=== PATIENT | female | born 1945 | race Caucasian/White ===

== ENCOUNTER 2021-04-14 03:41 | Emergency (ER) | payer OTHER ==
--- OUTSIDE RECORDS SUMMARY | 2021-04-14 03:43 | XMS REPORT | Continuity of Care Document ---
:1945 Author Organization [facility] t Address [address] [place] [address] Care Team Providers Name Role Phone Fredy Silvestre MD Attending Clinician Doctor Unassigned, Name Attending Clinician Unavailable Payers Payer Name Policy Type Policy Number Effective Date Expiration Date S ource Problems This patient has no known problems. Allergies, Adverse Reactions, Alerts Allergy Allergy Status Severity Reaction(s) Onset Inactive Treating Comm ents Source Name Type Date Date Clinician [place] DA Active [facility] ins 12-08 00:00: [address] Medications This patient has no known medications. Procedures This patient has no known procedures. Encounters Start End Encounter Admission Attending Care Care Encounter Source Date/Time Date/Time Type Type Clinicians Facility Department ID 2021-03-03 2021-03-03 Telephone GORDON Silvestre [id number] 00:00:00 00:00:00 [facility] [id number] Fredy Reeves [id number] Jessi [id number] nal [address] 2021-02-23 2021-02-23 Office GODRON Silvestre [id number] 09:42:48 10:07:36 Visit [facility] [id number] Fredy Reeves [id number] Jessi [id number] nal [address] 2021-02-23 2021-02-23 Orders Doctor ERIC [id number] 00:00:00 00:00:00 Only Unassigned, [place] [id number] [facility] [id number] Results Test Description Test Time Test Comments Results Result Comments Source BASIC METABOLIC PANEL 2020-12-09 08:09:00 Test Item Value Reference Range Interpretation Comme nts SODIUM (test code = NA) 132 MMOL/L 137-145 L POTASSIUM (test code = K) 4.0 MMOL/L 3.5-5.1 N CHLORIDE (test code = CL) 100 MMOL/L 98-107 N CARBON DIOXIDE (test code = CO2) 27 MMOL/L 22-30 N GLUCOSE (test code = GLU) 133 MG/DL 74-106 H BLOOD UREA NITROGEN (test code = 12 MG/DL 7-17 N BUN) GLOMERULAR FILTRATION RATE (test > 60 Reporting units: ml/min/1.73 code = GFR) m2 (Modified M DRD Formula)Referen ce Range: > or = 60 ml/min/1.7 3 m2 CREATININE (test code = CREAT) 0.70 MG/DL 0.52-1.04 N CALCIUM (test code = CA) 7.8 MG/DL 8.4-10.2 L CBC W/AUTO [id number] 07:46:00 Test Item Value Reference Range Interpretation Comments WHITE BLOOD CELL (test code = 8.4 K/MM3 3.8-9.8 N WBC) RED BLOOD CELL (test code = 3.66 M/MM3 3.58-4.97 N RBC) HEMOGLOBIN (test code = HGB) 10.4 G/DL 11.2-14.9 L HEMATOCRIT (test code = HCT) 33.4 % 33.2-43.5 MEAN CELL VOLUME (test code = 91 fL 80.7-99.1 N MCV) MEAN CELL HGB (test code = MCH) 28.4 pg 27.0-34.1 N MEAN CELL HGB CONCETRATION 31.1 % 32.2-35.7 L (test code = MCHC) RED CELL DISTRIBUTION WIDTH 13.9 % 12.1-15.2 N (test code = RDW) PLATELET COUNT (test code = 191 K/MM3 129-368 N PLT) MEAN PLATELET VOLUME (test code 11.3 fl 7.4-10.4 H = MPV) NEUTROPHIL % (test code = NT%) 75.7 % 43-75 H IMMATURE GRANULOCYTE % (test 0.4 % 0.0-2.0 N code = IG%) LYMPHOCYTE % (test code = LY%) 9.7 % 14-44 L MONOCYTE % (test code = MO%) 10.5 % 4-13 N EOSINOPHIL % (test code = EO%) 3.1 % 0-6 N BASOPHIL % (test code = BA%) 0.6 % 0-2 N NUCLEATED RBC % (test code = 0.0 % 0-1.0 N NRBC%) NEUTROPHIL # (test code = NT#) 6.33 K/mm3 2.0-7.6 N IMMATURE GRANULOCYTE # (test 0.03 x10 3/uL 0-0.03 N code = IG#) LYMPHOCYTE # (test code = LY#) 0.81 K/mm3 1.0-3.8 L MONOCYTE # (test code = MO#) 0.88 K/mm3 0.1-0.8 H EOSINOPHIL # (test code = EO#) 0.26 K/mm3 0.0-0.2 H BASOPHIL # (test code = BA#) 0.05 K/mm3 0.0-0.2 N NUCLEATED RBC # (test code = 0.00 K/mm3 0.0-0.1 N NRBC#) GLUCOSE BEDSIDE [id number] 18:37:00 Test Item Value Reference Range Interpretation Comments GLUCOSE BEDSIDE TESTING (test code 127 MG/DL 60-99 H = GLUBED) [id number] 10:57:00 Test Item Value Reference Range Interpretation Comments ACT-ISTAT (test code = ACTI) 323 SEC 74-137 H [id number] 10:37:00 Test Item Value Reference Range Interpretation Comments ACT-ISTAT (test code = ACTI) 301 SEC 74-137 H [id number] 10:17:00 Test Item Value Reference Range Interpretation Comments ACT-ISTAT (test code = ACTI) 285 SEC 74-137 H [id number] 09:57:00 Test Item Value Reference Range Interpretation Comments ACT-ISTAT (test code = ACTI) 290 SEC 74-137 H BASIC METABOLIC [id number] 06:52:00 Test Item Value Reference Range Interpretation Comments SODIUM (test code = 137 MMOL/L 137-145 N NA) POTASSIUM (test code = 4.8 MMOL/L 3.5-5.1 N K) CHLORIDE (test code = 99 MMOL/L 98-107 N CL) CARBON DIOXIDE (test 31 MMOL/L 22-30 H code = CO2) GLUCOSE (test code = 107 MG/DL 74-106 H GLU) BLOOD UREA NITROGEN 10 MG/DL 7-17 N (test code = BUN) GLOMERULAR FILTRATION > 60 Report ing units: RATE (test code = GFR) ml/mi n/1.73 m2 (Modified MDRD Formula)Referen ce Range: > or = 6 0 ml/min/1.73 m2 CREATININE (test code 0.70 MG/DL 0.52-1.04 N = CREAT) CALCIUM (test code = 8.9 MG/DL 8.4-10.2 N CA) [id number] 06:52:00 Test Item Value Reference Range Interpretation Comments MAGNESIUM (test code = MAG) 2.1 MG/DL 1.6-2.3 N PROTHROMBIN [id number] 06:49:00 Test Item Value Reference Range Interpretation Comments PROTHROMBIN TIME PATIENT 12.7 9.5-12.7 N (test code = PTP) INTERNATIONAL NORMAL RATIO 1.2 0.86-1.14 H T he INR is to be used (test code = INR) only for m onitoring oral anticoagulantth erapy. INDICATION INR VALUE ------- ------- -----1. Prophylaxis, d eep venous thrombos is, including high risk surgery. 2.0 - 3.0 2. Prophylaxis, de ep venous thrombos is, hip surgery, tr eatment for deep venous thrombosis or pulmonary preve ntion of systemic embolism in pat ients with valvula r heart disease, atrial fibrillation, tissue heart va lve, or acute myocardia l infarction. 2.0 - 3.0 3. Mechanical pros thesis heart valves, recurrent syste gwendolyn embolism. 3.0 - 4.5 PTT [id number] 06:49:00 Test Item Value Reference Range Interpretation Comments PTT ACTIVATED (test code = APTT) 33.3 SECONDS 25.1-36.5 N CBC W/AUTO [id number] 06:39:00 Test Item Value Reference Range Interpretation Comments WHITE BLOOD CELL (test code = 7.2 K/MM3 3.8-9.8 N WBC) RED BLOOD CELL (test code = 4.15 M/MM3 3.58-4.97 N RBC) HEMOGLOBIN (test code = HGB) 11.9 G/DL 11.2-14.9 N HEMATOCRIT (test code = HCT) 37.6 % 33.2-43.5 N MEAN CELL VOLUME (test code = 91 fL 80.7-99.1 N MCV) MEAN CELL HGB (test code = MCH) 28.7 pg 27.0-34.1 N MEAN CELL HGB CONCETRATION 31.6 % 32.2-35.7 L (test code = MCHC) RED CELL DISTRIBUTION WIDTH 13.6 % 12.1-15.2 N (test code = RDW) PLATELET COUNT (test code = 213 K/MM3 129-368 N PLT) MEAN PLATELET VOLUME (test code 10.8 fl 7.4-10.4 H = MPV) NEUTROPHIL % (test code = NT%) 67.3 % 43-75 N IMMATURE GRANULOCYTE % (test 0.1 % 0.0-2.0 N code = IG%) LYMPHOCYTE % (test code = LY%) 16.2 % 14-44 N MONOCYTE % (test code = MO%) 7.4 % 4-13 N EOSINOPHIL % (test code = EO%) 8.3 % 0-6 H BASOPHIL % (test code = BA%) 0.7 % 0-2 N NUCLEATED RBC % (test code = 0.0 % 0-1.0 N NRBC%) NEUTROPHIL # (test code = NT#) 4.85 K/mm3 2.0-7.6 N IMMATURE GRANULOCYTE # (test 0.01 x10 3/uL 0-0.03 N code = IG#) LYMPHOCYTE # (test code = LY#) 1.17 K/mm3 1.0-3.8 N MONOCYTE # (test code = MO#) 0.53 K/mm3 0.1-0.8 N EOSINOPHIL # (test code = EO#) 0.60 K/mm3 0.0-0.2 H BASOPHIL # (test code = BA#) 0.05 K/mm3 0.0-0.2 N NUCLEATED RBC # (test code = 0.00 K/mm3 0.0-0.1 N NRBC#) COVID Asymptomatic IH [id number] 14:18:00 Test Item Value Reference Interpretation Comments Range COVID Negative Negative A negative resu lt does not Asymptomatic IH preclude the SARS-COV-2 NTX (test code = viralinfect ion and should not COVNONPUINTX) be used as the sole basis forpatient fadumo gement decisions. Nega tive results must becombined with clinical observations, p atient history, andepidemiologi rita information. Vi ral levels in clinicalsamples below the detection limit of the assay could lead tone gative results. This test was p erformed using the [employer] Smart TM COVID-19 PCRassay. This test was developed and i ts performancechar acteristics were determined by [facility]. Thi s test has notbeen FDA barrera ared or approved. This test is authorized by t heFDA under Emergency Use Authorization(E UA). The EUA willremain in e ffect unless it is terminated o r revoked by FDA . Testing p arameters have not been valida tena for screeningasympt omatic patients. This test was validated accor ding to the FDA's guidanced ocument "Policy for Diagnostics testing in LaboratoriesCer tified to Perform High Co mplexity Testing under C ARNAV". First test? NoEmployed in Healthcare? UnknownSymptomatic as defined by CDC? UnknownHospitalized due to COVID? UnknownIn ICU due to COVID? UnknownResident in a congregate care setting? Unknown? UnknownAge at collection: Y
[2021-04-14 04:15] LABS: Absolute Lymphocytes (CBC) 0.9 K/uL (0.7-4.9); Hematocrit 37.3 % (36.0-45.0); Lymphocytes % 12.8 % (15.3-44.8); MPV 9.7 fL (7.6-11.3); RBC Red Blood Cell Count 4.42 M/uL (3.86-4.86)
[2021-04-14 04:20] LABS: Protime INR 1.41
[2021-04-14] MEDS ORDERED: NA CHLORIDE 0.9% 1,000 ML ONE (04:27)
[2021-04-14] MEDS ORDERED: METOPROLOL TAR 25 MG TAB ONE (04:27)
[2021-04-14] MEDS ORDERED: METOPROLOL TARTRATE 5 MG/5 ML INJ IV ONE (04:28)
[2021-04-14] MEDS ORDERED: DIGOXIN 0.25 MG/ML AMP ONE (04:29)
[2021-04-14 04:38] LABS: Albumin 3.6 g/dL (3.4-5.0); Bilirubin Direct 0.1 mg/dL (0-0.2); Bilirubin Total 0.8 mg/dL (0.2-1.0); Magnesium 2.1 mg/dL (1.8-2.4); Potassium 3.8 mmol/L (3.5-5.1); Protein, Total 6.7 g/dL (6.4-8.2); Thyroid Stimulating Hormone 0.666 uIU/mL (0.360-3.740); Troponin (Emerg Dept Use Only) 0.18 ng/mL (0.0-0.045)
--- NOTE | 2021-04-14 04:38 | ER ---
Nurse's Notes [facility] Name: Dinorah Castanon Age: 76 yrs Sex: Female : 1945 Arrival Date: 04/14/2021 Time: 03:44 Bed 7 Private MD: Diagnosis: Persistent atrial fibrillation-with RVR;Chest pain, unspecified;Hypotension, unspecified Presentation: 04/14 03:48 Chief complaint: EMS states: Reported recent ablation on december 02 reported she had SOB ea that started yesterday, dizziness. Pt was found to be 150s by EMS 20mg of diLTIAZEM, 4 zofran and NS given per EMS. Coronavirus screen: At this time, the client does not indicate any symptoms associated with coronavirus-19. Ebola Screen: No symptoms or risks identified at this time. Initial Sepsis Screen: Does the patient meet any 2 criteria? No. Patient's initial sepsis screen is negative. Does the patient have a suspected source of infection? No. Patient's initial sepsis screen is negative. Risk Assessment: Do you want to hurt yourself or someone else? Patient reports no desire to harm self or others. Onset of symptoms was April 14, 2021. 03:48 Method Of Arrival: EMS: [facility] ea 03:48 Acuity: POLO 3 ea Triage Assessment: 06:41 General: Appears in no apparent distress. Pain: Denies pain. Neuro: No deficits noted. ak2 Cardiovascular: Rhythm is atrial fibrillation with rapid ventricular response. Respiratory: No deficits noted. Historical: - Allergies: 03:54 PENICILLINS; ea - PMHx: 03:54 Atrial fibrillation; ea - Immunization history:: Adult Immunizations up to date. - Social history:: Smoking status: Patient denies any tobacco usage or history of. - Family history:: not pertinent. Screenin:53 Abuse screen: Denies threats or abuse. Nutritional screening: No deficits noted. ea Tuberculosis screening: No symptoms or risk factors identified. Fall Risk None identified. Assessment: 04:19 General: Appears in no apparent distress. Behavior is calm, cooperative, appropriate ea for age. Pain: Denies pain. Neuro: Level of Consciousness is awake, alert, obeys commands, Oriented to person, place, time. Cardiovascular: Patient's skin is warm and dry. Respiratory: Airway is patent Respiratory effort is even, unlabored, Respiratory pattern is regular, symmetrical. Derm: Skin is pink, warm \\T\\ dry. 06:43 Reassessment: Patient and/or family updated on plan of care and expected duration. Pain ak2 level reassessed. 07:00 Reassessment: Patient appears in no apparent distress at this time. Patient and/or tw2 family updated on plan of care and expected duration. Pain level reassessed. 08:00 Reassessment: Patient appears in no apparent distress at this time. Patient and/or tw2 family updated on plan of care and expected duration. Pain level reassessed. 09:00 Reassessment: Patient appears in no apparent distress at this time. Patient and/or tw2 family updated on plan of care and expected duration. Pain level reassessed. 10:03 Reassessment: Patient appears in no apparent distress at this time. Patient and/or tw2 family updated on plan of care and expected duration. Pain level reassessed. 11:00 Reassessment: Patient appears in no apparent distress at this time. Patient and/or tw2 family updated on plan of care and expected duration. Pain level reassessed. 11:39 Reassessment: Patient appears in no apparent distress at this time. Patient and/or tw2 family updated on plan of care and expected duration. Pain level reassessed. Vital Signs: 03:48 BP 115 / 73; Pulse 107; Resp 19; Temp 97.8; Pulse Ox 97% on R/A; Weight 95.71 kg; ea Height 5 ft. 5 in. (165.10 cm); 06:41 BP 95 / 58; Pulse 85; Resp 16; Pulse Ox 100% on R/A; ak2 07:00 BP 81 / 54; Pulse 107; Resp 17; Pulse Ox 95% on R/A; tw2 07:15 BP 94 / 57; Pulse 108; Resp 17; Pulse Ox 95% on R/A; tw2 07:30 BP 94 / 57; Pulse 102; Resp 17; Pulse Ox 95% on R/A; tw2 07:40 BP 98 / 66; Pulse 105; Resp 16; Pulse Ox 97% on R/A; tw2 07:45 BP 101 / 68; Pulse 114; Resp 18; Pulse Ox 97% on R/A; tw2 08:00 BP 103 / 61; Pulse 110; Resp 17; Pulse Ox 97% on R/A; tw2 08:15 BP 95 / 60; Pulse 111; Resp 17; Pulse Ox 96% on R/A; tw2 08:40 BP 114 / 63; Pulse 81; Resp 17; Pulse Ox 97% on R/A; tw2 09:00 BP 122 / 95; Pulse 118; Resp 17; Pulse Ox 97% on R/A; tw2 09:30 BP 107 / 89; Pulse 118; Resp 12; Pulse Ox 96% on R/A; tw2 10:03 BP 94 / 61; Pulse 111; Resp 17; Pulse Ox 96% on R/A; tw2 11:00 BP 109 / 68; Pulse 126; Resp 17; Pulse Ox 97% on R/A; tw2 11:39 BP 109 / 84; Pulse 100; Resp 17; Pulse Ox 97% on R/A; tw2 03:48 Body Mass Index 35.11 (95.71 kg, 165.10 cm) ea ED Course: 03:44 Patient arrived in ED. ea 03:50 Hoang Bermudez MD is Attending Physician. lavell 03:53 Triage completed. ea 03:53 Arm band placed on right wrist. Patient placed in an exam room, on a stretcher, on ea pulse oximetry. 03:53 Patient has correct armband on for positive identification. Bed in low position. Call ea light in reach. Side rails up X2. 03:53 Inserted saline lock: 20 gauge in left antecubital area, using aseptic technique. ea 04:04 Micah Guadarrama is Primary Nurse. ak2 04:11 XRAY Chest (1 view) In Process Unspecified. EDMS 05:12 initiated a transfer with Renee from [facility] Transfer Center. mw2 05:14 [facility] Dominic Cabrera denied due to capacity. mw2 05:[address] Navarrete to inform him that [facility] Dominic Cabrera denied the patient due to mw2 capacity. He stated "I will work on helping the patient get a bed don't worry.". 07:25 [facility] Dominic denied transfer due to being at full capacity, can call back at noon when the mt renewal is up. 07:36 Galina Gramajo, VERONICA is Primary Nurse. tw2 08:11 Dr Woody with [facility] called to speak with MARLENY Piña, and stated they have a bed mt assignment after speaking to the EMERGENCY GENERATOR MECHANIC and the transfer center will call back with administrative approval. 08:54 Chio with [facility] called to notify us they will be working on a bed for us and will call mt back with a bed assignment. 10:48 No provider procedures requiring assistance completed. Patient transferred, IV remains tw2 in place. 11:15 Report given to VERONICA Edwards at [facility] CVU Rm# [id number] [id number] Administered Medications: 04:55 Discontinued: NS 0.9% 1000 ml IV at 125 ml/hr continuous lavell 04:11 Drug: Digoxin 0.5 mg Route: IVP; Site: left hand; ea 07:09 Follow up: Response: No adverse reaction ea 04:11 Drug: Lopressor (metoprolol TARTRATE)) 25 mg Route: PO; ea 06:17 Follow up: Response: No adverse reaction ea 04:11 Drug: NS 0.9% 500 ml Route: IV; Rate: bolus; Site: left hand; ea 06:17 Follow up: Response: No adverse reaction; IV Status: Completed infusion; IV Intake: ea 500ml 06:17 Follow up: Response: No adverse reaction; IV Status: Completed infusion ea 04:11 Drug: NS 0.9% 1000 ml Route: IV; Rate: 125 ml/hr; Site: left hand; ea 04:22 Drug: Lopressor (metoprolol) 5 mg Route: IVP; Site: left hand; ak2 06:00 Follow up: Response: No adverse reaction ea 04:40 Drug: Lopressor (metoprolol) 2.5 mg Route: IVP; Site: left hand; ea 07:09 Follow up: Response: No adverse reaction ea 05:51 Drug: Aspirin 81 mg Route: PO; ak2 06:46 Follow up: Response: No adverse reaction ea 06:01 Drug: NS 0.9% 1000 ml Route: IV; Rate: 125 ml/hr; Site: left hand; ea 07:09 Follow up: Response: No adverse reaction; IV Status: Infusion continued upon admission ea 06:30 Drug: amiodarone 150 mg Volume: 100 ml; Route: IVPB; Infused Over: 10 mins; Site: left ea hand; 07:05 Follow up: Response: No adverse reaction; IV Status: Completed infusion ea 06:44 Drug: amiodarone 900 mg, D5W 500 ml Route: IVPB; Rate: 1 mg/min; Site: left hand; ea 11:37 Follow up: IV Status: Infusion continued upon transfer tw2 Intake: 06:17 IV: 500ml; Total: 500ml. miles Outcome: 04:37 ER care complete, transfer ordered by . lavell 11:37 Transferred by ground EMS Note: NIKOLAY Alfaro CVU Rm#[id number] tw2 11:37 Condition: stable 11:52 Patient left the ED. tw2 Signatures: Dispatcher [employer] EDMS Hoang Bermudez MD MD cha Wise, Tara, RN RN tw2 Hoda Ashley mt, Elena, RN RN Tray Prieto mw2 Micah Guadarrama ct2
--- NOTE | 2021-04-14 04:38 | EDPHYS ---
Physician Documentation [facility] Name: Dinorah Castanon Age: 76 yrs Sex: Female : 1945 Arrival Date: 04/14/2021 Time: 03:44 Bed 7 Private MD: ED Physician Hoang Bermudez HPI: 04/14 04:12 This 76 yrs old Female presents to ER via EMS with complaints of cp, fast hr lavell and low pressure. 04:12 The patient or guardian reports chest pain that is located primarily in the anterior lavell chest wall, bilaterally. Onset: yesterday. The patient presents with a history of irregular heart beat, heart racing. Context: The symptoms occur at rest. Onset: The symptoms/episode began/occurred yesterday. Duration: The patient or guardian reports multiple episodes, with no pattern. Modifying factors: The symptoms are aggravated by. cp, afib and low pressure. The pain does not radiate. Associated signs and symptoms: Pertinent positives: lightheadedness, SOB. Historical: - Allergies: 03:54 PENICILLINS; ea - PMHx: 03:54 Atrial fibrillation; ea - Immunization history:: Adult Immunizations up to date. - Social history:: Smoking status: Patient denies any tobacco usage or history of. - Family history:: not pertinent. ROS: 04:12 Constitutional: Negative for fever, chills, and weight loss, Eyes: Negative for injury, lavell pain, redness, and discharge, ENT: Negative for injury, pain, and discharge, Neck: Negative for injury, pain, and swelling, Respiratory: Negative for shortness of breath, cough, wheezing, and pleuritic chest pain, Abdomen/GI: Negative for abdominal pain, nausea, vomiting, diarrhea, and constipation, Back: Negative for injury and pain, : Negative for injury, bleeding, discharge, and swelling, MS/Extremity: Negative for injury and deformity, Skin: Negative for injury, rash, and discoloration, Neuro: Negative for headache, weakness, numbness, tingling, and seizure, Psych: Negative for depression, anxiety, suicide ideation, homicidal ideation, and hallucinations, Allergy/Immunology: Negative for hives, rash, and allergies, Endocrine: Negative for neck swelling, polydipsia, polyuria, polyphagia, and marked weight changes, Hematologic/Lymphatic: Negative for swollen nodes, abnormal bleeding, and unusual bruising. 04:12 Cardiovascular: Positive for chest pain, of the chest, palpitations. Exam: 04:12 Constitutional: This is a well developed, well nourished patient who is awake, alert, lavell and in no acute distress. Head/Face: Normocephalic, atraumatic. Eyes: Pupils equal round and reactive to light, extra-ocular motions intact. Lids and lashes normal. Conjunctiva and sclera are non-icteric and not injected. Cornea within normal limits. Periorbital areas with no swelling, redness, or edema. ENT: Nares patent. No nasal discharge, no septal abnormalities noted. Tympanic membranes are normal and external auditory canals are clear. Oropharynx with no redness, swelling, or masses, exudates, or evidence of obstruction, uvula midline. Mucous membranes moist. Neck: Trachea midline, no thyromegaly or masses palpated, and no cervical lymphadenopathy. Supple, full range of motion without nuchal rigidity, or vertebral point tenderness. No Meningismus. Chest/axilla: Normal chest wall appearance and motion. Nontender with no deformity. No lesions are appreciated. Respiratory: Lungs have equal breath sounds bilaterally, clear to auscultation and percussion. No rales, rhonchi or wheezes noted. No increased work of breathing, no retractions or nasal flaring. Abdomen/GI: Soft, non-tender, with normal bowel sounds. No distension or tympany. No guarding or rebound. No evidence of tenderness throughout. Back: No spinal tenderness. No costovertebral tenderness. Full range of motion. Female : Normal external genitalia. Skin: Warm, dry with normal turgor. Normal color with no rashes, no lesions, and no evidence of cellulitis. MS/ Extremity: Pulses equal, no cyanosis. Neurovascular intact. Full, normal range of motion. Neuro: Awake and alert, GCS 15, oriented to person, place, time, and situation. Cranial nerves II-XII grossly intact. Motor strength 5/5 in all extremities. Sensory grossly intact. Cerebellar exam normal. Normal gait. Psych: Awake, alert, with orientation to person, place and time. Behavior, mood, and affect are within normal limits. 04:12 Cardiovascular: Rate: tachycardic, Rhythm: irregularly irregular, Pulses: Pulses are 4+ in bilateral radial, brachial, femoral, popliteal, posterior tibial and and dorsalis pedis arteries.. Heart sounds: normal, Edema: is not appreciated, JVD: is noted bilaterally. 04:12 ECG was reviewed by the Attending Physician. Vital Signs: 03:48 BP 115 / 73; Pulse 107; Resp 19; Temp 97.8; Pulse Ox 97% on R/A; Weight 95.71 kg; ea Height 5 ft. 5 in. (165.10 cm); 06:41 BP 95 / 58; Pulse 85; Resp 16; Pulse Ox 100% on R/A; ak2 07:00 BP 81 / 54; Pulse 107; Resp 17; Pulse Ox 95% on R/A; tw2 07:15 BP 94 / 57; Pulse 108; Resp 17; Pulse Ox 95% on R/A; tw2 07:30 BP 94 / 57; Pulse 102; Resp 17; Pulse Ox 95% on R/A; tw2 07:40 BP 98 / 66; Pulse 105; Resp 16; Pulse Ox 97% on R/A; tw2 07:45 BP 101 / 68; Pulse 114; Resp 18; Pulse Ox 97% on R/A; tw2 08:00 BP 103 / 61; Pulse 110; Resp 17; Pulse Ox 97% on R/A; tw2 08:15 BP 95 / 60; Pulse 111; Resp 17; Pulse Ox 96% on R/A; tw2 08:40 BP 114 / 63; Pulse 81; Resp 17; Pulse Ox 97% on R/A; tw2 09:00 BP 122 / 95; Pulse 118; Resp 17; Pulse Ox 97% on R/A; tw2 09:30 BP 107 / 89; Pulse 118; Resp 12; Pulse Ox 96% on R/A; tw2 10:03 BP 94 / 61; Pulse 111; Resp 17; Pulse Ox 96% on R/A; tw2 11:00 BP 109 / 68; Pulse 126; Resp 17; Pulse Ox 97% on R/A; tw2 11:39 BP 109 / 84; Pulse 100; Resp 17; Pulse Ox 97% on R/A; tw2 03:48 Body Mass Index 35.11 (95.71 kg, 165.10 cm) ea MDM: 03:51 Patient medically screened. lavell 04:16 Differential diagnosis: abnormal EKG, anxiety, coronary artery disease chest wall pain, lavell congestive heart failure Cholelithiasis arrythmia, dehydration, gastritis, hiatal hernia, mitral valve prolapse, pancreatitis, pleurisy, stable angina, unstable angina. HEART Score: History: Slightly Suspicious (0), ECG: Non specific repolarization disturbance / LBTB / PM (1), Age: > or = 65 years (2), Risk Factors: > or = 3 Risk factors for atherosclerotic disease (2), Troponin: < or = 1 x Normal Limit (0). The patient's deep vein thrombosis risk score was calculated as follows: Total Score: 0. This patient was found to be at low risk for a deep vein thrombosis by using the Well's assessment criteria. The patient's pulmonary embolism risk score was calculated as follows: Total Score: 0-2 points. This patient was found to be at low risk for a pulmonary embolism by using the Well's assessment criteria. LOREN Risk Score: 1 - patient's age is greater or equal to 65 years, 1 - Three or more CAD risk factors, [Family Hx], [HTN], [Elevated Cholesterol], 1 - Recent [<24hrs] Severe Angina, TOTAL SCORE = 3. Data reviewed: vital signs, nurses notes, lab test result(s), EKG, radiologic studies, CT scan, plain films. Data interpreted: monitor worker: rate is 107 beats/min, rhythm is regular, Pulse oximetry: on room air is 97 %. Test interpretation: by ED physician or midlevel provider: ECG, plain radiologic studies. Counseling: I had a detailed discussion with the patient and/or guardian regarding: the historical points, exam findings, and any diagnostic results supporting the discharge/admit diagnosis, lab results, radiology results, the need to transfer to another facility, for higher level of care, [facility] does not immediately have the required specialist. 08:11 ED course: spoke with DR George, hospitalist \T\Domin[facility] [place], reports he has spoken with cp MAT REPAIRER of hospital and they are continuing to work on admitting patient. 04/14 03:44 Order name: Basic Metabolic Panel ea 04/14 03:44 Order name: CBC with Diff ea 04/14 03:44 Order name: LFT's; Complete Time: 04:54 ea 04/14 03:44 Order name: Magnesium; Complete Time: 04:54 04/14 03:44 Order name: NT PRO-BNP; Complete Time: 04:54 ea 04/14 03:44 Order name: PT-INR; Complete Time: 04:54 ea 04/14 03:44 Order name: Troponin (emerg Dept Use Only); Complete Time: 04:54 ea 04/14 03:45 Order name: Basic Metabolic Panel; Complete Time: 04:54 EDMS 04/14 03:45 Order name: CBC with Automated Diff; Complete Time: 04:54 EDMS 04/14 04:11 Order name: Lipase; Complete Time: 04:54 EDMS 04/14 04:11 Order name: Thyroid Stimulating Hormone; Complete Time: 04:54 EDMS 04/14 04:14 Order name: Digoxin; Complete Time: 05:09 mw2 04/14 03:44 Order name: XRAY Chest (1 view); Complete Time: 08:00 ea 04/14 03:44 Order name: EKG; Complete Time: 03:45 ea 04/14 03:44 Order name: Cardiac monitoring; Complete Time: 03:48 ea 04/14 03:44 Order name: EKG - Nurse/Tech; Complete Time: 03:55 ea 04/14 09:33 Order name: SARS-COV-2 RT PCR EDMS 04/14 03:44 Order name: IV Saline Lock; Complete Time: 03:55 ea 04/14 03:44 Order name: Labs collected and sent; Complete Time: 03:55 ea 04/14 03:44 Order name: O2 Per Protocol; Complete Time: 03:48 ea 04/14 03:44 Order name: O2 Sat Monitoring; Complete Time: 03:48 ea 04/14 06:13 Order name: IV Saline Lock - Large Bore; Complete Time: 10:48 lavell EC:12 Rate is 98 beats/min. Rhythm is irregularly irregular. QRS [place] is Normal. IN interval lavell is normal. QRS interval is normal. QT interval is normal. No Q waves. T waves are Normal. No ST changes noted. Clinical impression: NSR w/ Non-specific ST/T Changes and No evidence of ischemia. Interpreted by me. Reviewed by me. Administered Medications: 04:55 Discontinued: NS 0.9% 1000 ml IV at 125 ml/hr continuous lavell 04:11 Drug: Digoxin 0.5 mg Route: IVP; Site: left hand; ea 07:09 Follow up: Response: No adverse reaction ea 04:11 Drug: Lopressor (metoprolol TARTRATE)) 25 mg Route: PO; ea 06:17 Follow up: Response: No adverse reaction ea 04:11 Drug: NS 0.9% 500 ml Route: IV; Rate: bolus; Site: left hand; ea 06:17 Follow up: Response: No adverse reaction; IV Status: Completed infusion; IV Intake: ea 500ml 06:17 Follow up: Response: No adverse reaction; IV Status: Completed infusion ea 04:11 Drug: NS 0.9% 1000 ml Route: IV; Rate: 125 ml/hr; Site: left hand; ea 04:22 Drug: Lopressor (metoprolol) 5 mg Route: IVP; Site: left hand; ak2 06:00 Follow up: Response: No adverse reaction ea 04:40 Drug: Lopressor (metoprolol) 2.5 mg Route: IVP; Site: left hand; ea 07:09 Follow up: Response: No adverse reaction ea 05:51 Drug: Aspirin 81 mg Route: PO; ak2 06:46 Follow up: Response: No adverse reaction ea 06:01 Drug: NS 0.9% 1000 ml Route: IV; Rate: 125 ml/hr; Site: left hand; ea 07:09 Follow up: Response: No adverse reaction; IV Status: Infusion continued upon admission ea 06:30 Drug: amiodarone 150 mg Volume: 100 ml; Route: IVPB; Infused Over: 10 mins; Site: left ea hand; 07:05 Follow up: Response: No adverse reaction; IV Status: Completed infusion ea 06:44 Drug: amiodarone 900 mg, D5W 500 ml Route: IVPB; Rate: 1 mg/min; Site: left hand; ea 11:37 Follow up: IV Status: Infusion continued upon transfer tw2 Disposition: 13:19 Co-signature as Attending Physician, Hoang Bermudez MD I agree with the assessment and lavell plan of care. Disposition Summary: 04/14/21 04:37 Transfer Ordered Reason: Higher level of care lavell Condition: Stable lavell Problem: new lavell Symptoms: have improved lavell Transfer Location: Other Acute Care Facility(04/14/21 08:11) cp Accepting Physician: DR George(04/14/21 11:52) tw2 Diagnosis - Persistent atrial fibrillation - with RVR lavell - Chest pain, unspecified lavell - Hypotension, unspecified lavell Forms: - Medication Reconciliation Form lavell - SBAR form lavell Signatures: Dispatcher [employer] EDMS Hoang Bermudez MD MD cha Nieto, Roman, MD MD rn Page, Corey, PA PA Galina Elizabeth RN RN tw2 Jenna Carson RN RN Micah Avila ak2 Corrections: (The following items were deleted from the chart) 04:11 03:54 THYROID STIMULAT HORMONE+C.LAB.BRZ ordered. EDMS EDMS 04:11 03:54 LIPASE+C.LAB.BRZ ordered. EDMS EDMS 05:05 04:37 to [facility] lavell 08:11 04:37 [facility] lavell cp 08:11 05:05 to [facility] cp 08:39 05:10 CORONAVIRUS+MR.LAB.BRZ ordered. EDMS EDMS 11:12 08:11 to [facility] cp cp 11:52 11:12 DR George cp tw2
[2021-04-14] MEDS ORDERED: ASPIRIN 81 MG CHEWABLE TABLET ONE (05:31)
[2021-04-14] MEDS ORDERED: D5W 100 ML IV ONE (06:41)
[2021-04-14] MEDS ORDERED: AMIODARONE HCL 150 MG/3 ML INJ IV ONE ×2 (06:41→06:45)
--- NOTE | 2021-04-14 07:58 | RAD REPORT ---
EXAM DESCRIPTION: Frandy Single View04/14/2021 4:11 am CLINICAL HISTORY: Palpitations COMPARISON: 2019 FINDINGS: The lungs appear clear of acute infiltrate. The heart is mildly to moderately enlarged IMPRESSION: No acute abnormalities displayed
[2021-04-14 12:00] VITALS: TEMP 97.8
[2021-04-14 12:19] VITALS: O2SAT 97
[2021-04-14 12:21] VITALS: BP 109/84
--- NOTE | 2021-04-14 19:14 | EKG ---
Test Date: 2021-04-14 Test Time: 03:39:23 Body And Frame Man: MEASUREMENT RESULTS: Intervals: Rate: 98 GA: 208 QRSD: 86 QT: 358 QTc: 457 [place]: P: 69 GA: 208 QRS: -12 T: -67 INTERPRETIVE STATEMENTS: Normal sinus rhythm Low voltage QRS ST & T wave abnormality, consider inferior ischemia ST & T wave abnormality, consider anterolateral ischemia Abnormal ECG No previous ECG available for comparison Electronically Signed On 04-14-21 19:13:32 CDT by Rhys Scott
== END 2021-04-14 11:52 ==
LOC: ER 03:41
DX: I48.19 Other persistent atrial fibrillation (principal); I95.9 Hypotension, unspecified; Z20.822 Contact with and (suspected) exposure to COVID-19; Z88.0 Allergy status to penicillin
CPT/HCPCS: 93005; 85025; 80048; 36415; 83735; 85610; 80162; 80076; 84443; 84484; 83690; 83880; 71045; U0003; J1160; J0282 ×2; J7060; J7030; 96361; 96365; 96366; 96375; 99285

== ENCOUNTER 2022-03-02 04:32 | Emergency (ER) | payer OTHER ==
--- OUTSIDE RECORDS SUMMARY | 2022-03-02 04:35 | XMS REPORT | Continuity of Care Document ---
:1945 Author Organization [facility] t Address [address] [place] [address] Care Team Providers Name Role Phone Chas Velazquez Attending Clinician Unavailable FREDY SILVESTRE Attending Clinician Unavailable Ariel Attending Clinician Unavailable Fredy Silvestre MD Attending Clinician Doctor Unassigned, Name Attending Clinician Unavailable Shanita Villa Attending Clinician Unavailable Parvez STEPHENS Attending Clinician Unavailable Dora INFANTE Attending Clinician Unavailable Dora INFANTE Attending Clinician Unavailable Ariel Admitting Clinician Unavailable Payers Payer Name Policy Type Policy Number Effective Date Expiration Date S ource [employer] MEDICARE ADV [id number] 2017 00:00:00 Problems This patient has no known problems. Allergies, Adverse Reactions, Alerts Allergy Allergy Status Severity Reaction(s) Onset Inactive Treating Comm ents Source Name Type Date Date Clinician [place] DA Active SV 2020- [facility] 04-14 00:00: [address] Penic[place] DA Active SV [facility]CHING AND [facility] RASH 04-14 00:00: [address] Pen[place] DA Active SV ITCHING AND 2020-0 [facility] RASH 12-08 00:00: [address] [place] DA Active SV 2020- [facility] ins 12-08 00:00: [address] PENICILL Drug Active ITCHING 2017-0 Univers INS Class 8-10 ity of 00:00: [address] Medications This patient has no known medications. Procedures This patient has no known procedures. Encounters Start End Encounter Admission Attending Care Care Encounter Source Date/Time Date/Time Type Type Clinicians Facility Department ID 2021-10-28 Outpatient Kimi Velazquez STLMLC STLMLC [id number] Common 14:23:55 [id number] [facility] 2021-10-28 Outpatient Kimi Velazquez STLMLC STLMLC [id number] Common 13:50:36 [id number] [facility] 2021-10-28 Outpatient STLMLC STLMLC [id number] Common 13:47:37 [id number] [facility] 2021-08-01 Emergency [facility] [id number] Univers 13:08:07 [facility] 2022-01-27 2022-01-27 ambulatory STLMLC STLMLC [id number] Common 00:00:00 00:00:00 [facility] 2021-10-11 2021-10-11 ambulatory STLMLC STLMLC [id number] Common 00:00:00 00:00:00 [facility] 2021-08-09 2021-08-09 ambulatory STLMLC STLMLC [id number] Common 00:00:00 00:00:00 [facility] 2021-06-11 2021-06-11 Outpatient STLMLC STLMLC [id number] Common 00:00:00 00:00:00 [facility] 2021-04-27 2021-04-27 Outpatient Chandan SILVESTRE [facility] [id number] Univers 15:15:00 15:15:00 ESHA [id number] [facility] 2021-04-27 2021-04-27 [facility] [id number] Univers 15:15:00 15:15:00 ESHA [facility] 2021-04-14 2021-04-16 Inpatient UR Ariel, NIKOLAYWU TELE [id number] [facility] 15:23:00 15:32:00 Bunny [id number] [facility] 2021-03-23 2021-03-23 [facility] [id number] Univers 10:15:00 10:15:00 ESHA [id number] [facility] 2021-03-23 2021-03-23 Outpatient Chandan [facility] [id number] Univers 10:15:00 10:15:00 [facility] 2021-03-03 2021-03-03 Telephone [facility] [id number] 00:00:00 00:00:00 [facility] [id number] Edward [place] [id number] Professio [phone] nal 044 Office [facility] 2021-02-23 2021-02-23 Office [facility] [id number] 09:42:48 10:07:36 Visit [id number] [facility] [id number] Professio [phone] nal [facility] Office [facility] 2021-02-23 2021-02-23 Outpatient Chandan [facility] [id number] Univers 10:00:00 10:00:00 ESHA [id number] [facility] 2021-02-23 2021-02-23 Outpatient Chandan [facility] [id number] Univers 10:00:00 10:00:00 [facility] 2021-02-23 2021-02-23 Orders Doctor REYES [id number] 00:00:00 00:00:00 Only Unassigned, [place] [id number] [place] [facility] [id number] 2020-12-08 2020-12-08 Outpatient Daisy, HCAWU SURG [id number] [facility] 08:00:00 08:00:00 Neo [id number] [facility] 2020-12-02 2020-12-02 Outpatient R [facility] [id number] Univers 19:30:00 19:30:00 [id number] ity [facility] 2020-12-02 2020-12-02 Outpatient R [facility] [id number] Univers 19:30:00 19:30:00 ity of [facility] 2020-11-28 2020-11-28 Outpatient R [facility] [id number] Univers 10:30:00 10:30:00 [id number] ity [facility] 2020-11-28 2020-11-28 Outpatient R [facility] [id number] Univers 10:30:00 10:30:00 ity [facility] 2020-11-28 2020-11-28 Outpatient R [facility] [id number] Univers 08:00:00 08:00:00 ity [facility] 2020-11-10 2020-11-10 Outpatient R SHEMAR [facility] [id number] Univers 10:00:00 10:00:00 ESHA [id number] ity [facility] 2020-11-10 2020-11-10 [facility] [id number] Univers 10:00:00 10:00:00 ESHA ity [facility] 2020-11-07 2020-11-07 Outpatient R SHEMAR [facility] [id number] Univers 09:30:00 09:30:00 ESHA [id number] ity [facility] 2020-11-06 2020-11-06 [facility] [id number] Univers 15:00:00 15:00:00 KOSTA ity [facility] 2020-11-06 2020-11-06 Outpatient R KAT [facility] [id number] Univers 08:50:00 08:50:00 KOSTA [id number] ity [facility] 2020-10-17 2020-10-17 Outpatient R [facility] [id number] Univers 19:30:00 19:30:00 [id number] ity [facility] 2020-10-17 2020-10-17 Outpatient R JANIA INFANTE [facility] [id number] Univers 19:30:00 19:30:00 JANIA INFANTE [facility] 2020-10-15 2020-10-15 Outpatient R [facility] [id number] Univers 10:15:00 10:15:00 [id number] [facility] 2020-10-15 2020-10-15 Outpatient R [facility] [id number] Univers 10:15:00 10:15:00 [facility] 2020-10-09 2020-10-09 Outpatient R KAT [facility] [id number] Univers 08:50:00 08:50:00 KOSTA [id number] [facility] 2020-10-09 2020-10-09 Outpatient R KAT [facility] [id number] Univers 08:50:00 08:50:00 KOSTA [facility] Results Test Description Test Time Test Comments Results Result Comments Source THYROID STIMULATING HORMONE 2021-04-15 22:23:00 Test Item Value Reference Range Interpretation Comme nts THYROID STIMULATING HORMONE 0.918 MIU/L 0.465-4.68 N Please be aware that bias (test code = TSH) results fo r TSH may occur forpatient who are taking Biotin suppleme nts. GLUCOSE BEDSIDE [id number] 19:07:00 Test Item Value Reference Range Interpretation Comments GLUCOSE BEDSIDE TESTING (test code 111 MG/DL 60-99 H = GLUBED) COMPREHENSIVE METABOLIC [id number] 05:38:00 Test Item Value Reference Range Interpretation Comments SODIUM (test code 136 MMOL/L 137-145 L = NA) POTASSIUM (test 4.4 MMOL/L 3.5-5.1 N code = K) CHLORIDE (test 103 MMOL/L 98-107 N code = CL) CARBON DIOXIDE 26 MMOL/L 22-30 N (test code = CO2) GLUCOSE (test 100 MG/DL 74-106 N code = GLU) BLOOD UREA 12 MG/DL 7-17 N NITROGEN (test code = BUN) GLOMERULAR > 60 Reporting units : FILTRATION RATE ml/min/1.73 m2 (Modified (test code = GFR) MDRD Formu la)Reference Range: > or = 6 0 ml/min/1.73 m2 CREATININE (test 0.80 MG/DL 0.52-1.04 N code = CREAT) TOTAL PROTEIN 6.5 G/DL 6.3-8.2 N [facility] Clinical Diagnostic (test code = has made us shira re of PROT) newinformation regarding the potential i nterference ofEltrombopag (a bone marrow stimulan t used to treatthrombocyt onmenia and aplastic anemia ) with specific assays on the [facility] [employer] 5600 of which Total Protein is one of thoseassays per formed in our lab.Interfe rence testing perform ed at Ortho determined that Eltrombopag does interfere with Vitros Total Protein asfollowsEltrom bopag Interference fo r Vitros Product Total Protein:======= Eltrombopag Max Observed A vg. BiasConcentrati on Concentration Concentration== ==== 2.5 mg/dl 6.0 g/dl +0.41 +0.34 3.5 mg/dl 6.0 g/dl +0.50 +0.45 5 mg/dl 6.0 g/dl +0.73 +0.65 2.5 mg/dl 8.0 g/dl +0.44 +0.41 3.5 mg/dl 8.0 g/dl +0.55 +0.52 5 mg/dl 8.0 g/dl +0.86 +0.77 ALBUMIN (test 3.8 G/DL 3.5-5.0 N code = ALB) CALCIUM (test 8.8 MG/DL 8.4-10.2 N code = CA) BILIRUBIN TOTAL 0.7 MG/DL 0.2-1.3 N Eltrombopag Interference (test code = for Vitros Prod uct TBil, BILT) BuBc: Assa y Eltrombopag Analyte/ Max Observed Avg. Bias Concentrati on Concentration Concentration== ====TBil 7mg/dl T Mor/ 1.2mg/dl +0.23 mg.dl +0.20mg/dlBuBc 3.5mg/dl Bu/0.8mg/dl +0.25mg/dl +0 .24mg/dlBuBc 7 mg/dl Bu/14.2mg/dl +0.38mg/dl +0.25mg/dlBuBc 5mg/dl Bc/0mg/dl +0.25mg/dl +0 .15mg/dlBuBc 3.5mg/dl Bc/2.8mg/dl +0.25mg/dl +0.23mg/dl SGOT/AST (test 22 UNITS/L 14-36 N code = AST) SGPT/ALT (test 16 UNITS/L 0-34 N code = ALT) ALKALINE 70 UNITS/L 38-126 N PHOSPHATASE (test code = ALKP) LIPID PROFILE (CORONARY RISK)2021-04-15 05:38:00 Test Item Value Reference Range Interpretation Comments TRIGLYCERIDES (test 124 MG/DL TRIGLYCE RIDES code = TRIG) REFERENCE RANGE:Normal: < 150 mg/dLBorderline High: 150-199 mg/dLHi gh: 200-499 mg/dLVe ry High: >=500 mg/ dL CHOLESTEROL (test code 176 MG/DL <200 = CHOL) HDL CHOLESTEROL (test 36 MG/DL 40-59 L code = HDL) LIPOPROTEIN LDL (test 114 MG/DL 0-99 H code = LDL) OPTIMAL........ .<100 mg/dLNEAR OPTIMAL/ABOVE OPTIMAL........ .100-12 9 mg/dL BORDERLINE HIGH.........13 0-159 mg/dL HIGH.........16 0-189 mg/dL VERY HIGH...... ...>/= 190 mg/dL COMPREHENSIVE METABOLIC [id number] 05:27:00 Test Item Value Reference Range Interpretation Comments SODIUM (test code 136 MMOL/L 137-145 L = NA) POTASSIUM (test 4.4 MMOL/L 3.5-5.1 N code = K) CHLORIDE (test 103 MMOL/L 98-107 N code = CL) CARBON DIOXIDE 26 MMOL/L 22-30 N (test code = CO2) GLUCOSE (test 100 MG/DL 74-106 N code = GLU) BLOOD UREA 12 MG/DL 7-17 N NITROGEN (test code = BUN) GLOMERULAR > 60 Reporting units : FILTRATION RATE ml/min/1.73 m2 (Modified (test code = GFR) MDRD Formu la)Reference Range: > or = 6 0 ml/min/1.73 m2 CREATININE (test 0.80 MG/DL 0.52-1.04 N code = CREAT) TOTAL PROTEIN 6.5 G/DL 6.3-8.2 N [facility] Clinical Diagnostic (test code = has made us shira re of PROT) newinformation regarding the potential i nterference ofEltrombopag (a bone marrow stimulan t used to treatthrombocyt onmenia and aplastic anemia ) with specific assays on the Vitros 5600 of which Total Protein is one of thoseassays per formed in our lab.Interfe rence testing perform ed at Ortho determined that Eltrombopag does interfere with Vitros Total Protein asfollowsEltrom bopag Interference fo r Vitros Product Total Protein:======= Eltrombopag Max Observed A vg. BiasConcentrati on Concentration Concentration== ==== 2.5 mg/dl 6.0 g/dl +0.41 +0.34 3.5 mg/dl 6.0 g/dl +0.50 +0.45 5 mg/dl 6.0 g/dl +0.73 +0.65 2.5 mg/dl 8.0 g/dl +0.44 +0.41 3.5 mg/dl 8.0 g/dl +0.55 +0.52 5 mg/dl 8.0 g/dl +0.86 +0.77 ALBUMIN (test 3.8 G/DL 3.5-5.0 N code = ALB) CALCIUM (test 8.8 MG/DL 8.4-10.2 N code = CA) BILIRUBIN TOTAL 0.7 MG/DL 0.2-1.3 N Eltrombopag Interference (test code = for Vitros Prod uct TBil, BILT) BuBc: Assa y Eltrombopag Analyte/ Max Observed Avg. Bias Concentrati on Concentration Concentration== ====TBil 7mg/dl T Mor/ 1.2mg/dl +0.23 mg.dl +0.20mg/dlBuBc 3.5mg/dl Bu/0.8mg/dl +0.25mg/dl +0 .24mg/dlBuBc 7 mg/dl Bu/14.2mg/dl +0.38mg/dl +0.25mg/dlBuBc 5mg/dl Bc/0mg/dl +0.25mg/dl +0 .15mg/dlBuBc 3.5mg/dl Bc/2.8mg/dl +0.25mg/dl +0.23mg/dl SGOT/AST (test 22 UNITS/L 14-36 N code = AST) SGPT/ALT (test 16 UNITS/L 0-34 N code = ALT) ALKALINE 70 UNITS/L 38-126 N PHOSPHATASE (test code = ALKP) LIPID PROFILE (CORONARY RISK)2021-04-15 05:27:00 Test Item Value Reference Range Interpretation Comments TRIGLYCERIDES (test 124 MG/DL TRIGLYCE RIDES code = TRIG) REFERENCE RANGE:Normal: < 150 mg/dLBorderline High: 150-199 mg/dLHi gh: 200-499 mg/dLVe ry High: >=500 mg/ dL CHOLESTEROL (test code 176 MG/DL <200 = CHOL) HDL CHOLESTEROL (test 36 MG/DL 40-59 L code = HDL) LIPOPROTEIN LDL (test MG/DL 0-99 code = LDL) CBC W/AUTO [id number] 05:14:00 Test Item Value Reference Range Interpretation Comments WHITE BLOOD CELL (test code = 5.3 K/MM3 3.8-9.8 N WBC) RED BLOOD CELL (test code = 4.43 M/MM3 3.58-4.97 N RBC) HEMOGLOBIN (test code = HGB) 12.1 G/DL 11.2-14.9 N HEMATOCRIT (test code = HCT) 39.5 % 33.2-43.5 N MEAN CELL VOLUME (test code = 89 fL 80.7-99.1 N MCV) MEAN CELL HGB (test code = MCH) 27.3 pg 27.0-34.1 N MEAN CELL HGB CONCETRATION 30.6 % 32.2-35.7 L (test code = MCHC) RED CELL DISTRIBUTION WIDTH 14.1 % 12.1-15.2 N (test code = RDW) PLATELET COUNT (test code = 202 K/MM3 129-368 N PLT) MEAN PLATELET VOLUME (test code 11.2 fl 7.4-10.4 H = MPV) NEUTROPHIL % (test code = NT%) 60.1 % 43-75 N IMMATURE GRANULOCYTE % (test 0.2 % 0.0-2.0 N code = IG%) LYMPHOCYTE % (test code = LY%) 21.6 % 14-44 N MONOCYTE % (test code = MO%) 10.5 % 4-13 N EOSINOPHIL % (test code = EO%) 6.8 % 0-6 H BASOPHIL % (test code = BA%) 0.8 % 0-2 N NUCLEATED RBC % (test code = 0.0 % 0-1.0 N NRBC%) NEUTROPHIL # (test code = NT#) 3.20 K/mm3 2.0-7.6 N IMMATURE GRANULOCYTE # (test 0.01 x10 3/uL 0-0.03 N code = IG#) LYMPHOCYTE # (test code = LY#) 1.15 K/mm3 1.0-3.8 N MONOCYTE # (test code = MO#) 0.56 K/mm3 0.1-0.8 N EOSINOPHIL # (test code = EO#) 0.36 K/mm3 0.0-0.2 H BASOPHIL # (test code = BA#) 0.04 K/mm3 0.0-0.2 N NUCLEATED RBC # (test code = 0.00 K/mm3 0.0-0.1 N NRBC#) [id number] 21:09:00 Test Item Value Reference Range Interpretation Comments TROPONIN-I (test 0.258 NG/ML 0.012-0.033 HH CALLED TO Chas Gant& code = TROPI) READBACK ON AT 2109 BY Francesco Capps LIPOPROTEIN LDL [id number] 16:23:00 Test Item Value Reference Range Interpretation Comments LIPOPROTEIN LDL DIRECT 119 mg/dL 100-129 N ===== (test code = LDLDIR) ======= ====R eference Interv al: mg/dL mmol/L-------- ----- ----- ----- ------Optimal < 100 <2.6Near/above optimal 100-129 2.6-3.3Borderli ne High 130-159 3.4-4.1High 160-189 4.1-4.9Very Hig h >=190 >=4.9========= This LDL result is a direct measurement.=== ===== = [id number] 16:23:00 Test Item Value Reference Range Interpretation Comments TROPONIN-I (test 0.242 NG/ML 0.012-0.033 CALLED TO [facility]& code = TROPI) READBACK ON AT 1606 BY Francesco Capps LIPOPROTEIN LDL [id number] 16:06:00 Test Item Value Reference Range Interpretation Comments LIPOPROTEIN LDL DIRECT (test code = mg/dL 100-129 LDLDIR) [id number] 16:06:00 Test Item Value Reference Range Interpretation Comments TROPONIN-I (test 0.242 NG/ML 0.012-0.033 CALLED TO [facility]& code = TROPI) READBACK ON AT 1606 BY Francesco Capps BASIC METABOLIC [id number] 08:09:00 Test Item Value Reference Range Interpretation Comments SODIUM (test code = 132 MMOL/L 137-145 L NA) POTASSIUM (test code = 4.0 MMOL/L 3.5-5.1 N K) CHLORIDE (test code = 100 MMOL/L 98-107 N CL) CARBON DIOXIDE (test 27 MMOL/L 22-30 N code = CO2) GLUCOSE (test code = 133 MG/DL 74-106 H GLU) BLOOD UREA NITROGEN 12 MG/DL 7-17 N (test code = BUN) GLOMERULAR FILTRATION > 60 Report ing units: RATE (test code = GFR) ml/mi n/1.73 m2 (Modified MDRD Formula)Referen ce Range: > or = 6 0 ml/min/1.73 m2 CREATININE (test code 0.70 MG/DL 0.52-1.04 N = CREAT) CALCIUM (test code = 7.8 MG/DL 8.4-10.2 L CA) CBC W/AUTO [id number] 07:46:00 Test Item Value Reference Range Interpretation [...] 0.00 K/mm3 0.0-0.1 N NRBC#) GLUCOSE BEDSIDE [id number] 18:37:00 Test Item Value Reference Range Interpretation Comments GLUCOSE BEDSIDE TESTING (test code 127 MG/DL 60-99 H = GLUBED) [id number] 10:57:00 Test Item Value Reference Range Interpretation Comments ACT-ISTAT (test code = ACTI) 323 SEC 74-137 H [id number] 10:37:00 Test Item Value Reference Range Interpretation Comments ACT-ISTAT (test code = ACTI) 301 SEC 74-137 H [id number] 10:17:00 Test Item Value Reference Range Interpretation Comments ACT-ISTAT (test code = ACTI) 285 SEC 74-137 H [id number] 09:57:00 Test Item Value Reference Range Interpretation Comments ACT-ISTAT (test code = ACTI) 290 SEC 74-137 H BASIC METABOLIC [id number] 06:52:00 Test Item Value Reference Range Interpretation [...] code = 8.9 MG/DL 8.4-10.2 N CA) [id number] 06:52:00 Test Item Value Reference Range Interpretation Comments MAGNESIUM (test code = MAG) 2.1 MG/DL 1.6-2.3 N PROTHROMBIN [id number] 06:49:00 Test Item Value Reference Range Interpretation [...] syste gwendolyn embolism. 3.0 - 4.5 PTT [id number] 06:49:00 Test Item Value Reference Range Interpretation Comments PTT ACTIVATED (test code = APTT) 33.3 SECONDS 25.1-36.5 N CBC W/AUTO [id number] 06:39:00 Test Item Value Reference Range Interpretation [...] K/mm3 0.0-0.1 N NRBC#) COVID Asymptomatic IH [id number] 14:18:00 Test Item Value Reference Interpretation Comments [...] i ts performancechar acteristics were determined by [facility]. Thi s test has notbeen FDA [...] ocument "Policy for Diagnostics testing in LaboratoriesCer [facility] to Perform High Co mplexity Testing under C ARNAV". First test? NoEmployed in Healthcare? UnknownSymptomatic as defined by CDC? UnknownHospitalized due to COVID? UnknownIn ICU due to COVID? UnknownResident in a congregate care setting? Unknown? UnknownAge at collection: Y
[2022-03-02] MEDS ORDERED: ASPIRIN 81 MG CHEWABLE TABLET ONE (05:04)
[2022-03-02 05:26] LABS: Hematocrit 36.5 % (36.0-45.0); Lymphocytes % 28.7 % (15.3-44.8); MPV 8.6 fL (7.6-11.3); RBC Red Blood Cell Count 4.19 M/uL (3.86-4.86)
[2022-03-02 05:40] LABS: Potassium 3.7 mmol/L (3.5-5.1)
--- NOTE | 2022-03-02 07:14 | EDPHYS ---
Physician Documentation Formerly [facility] Name: Dinorah Castanon Age: 76 yrs Sex: Female : 1945 Arrival Date: 03/02/2022 Time: 04:33 Bed 2 Private MD: ED Physician David Jarquin HPI: 03/02 07:13 This 76 yrs old Female presents to ER via EMS with complaints of Palpitations. ms3 07:13 The patient presents with a history of irregular heart beat, heart racing. Context: The ms3 symptoms occur at rest. Onset: The symptoms/episode began/occurred acutely, 4.5 hour(s) ago. Duration: The patient or guardian reports a single episode, that is now resolved. Modifying factors: The symptoms are aggravated by nothing. The symptoms are alleviated by EMS medications. Associated signs and symptoms: The patient has no apparent associated signs or symptoms. Severity of symptoms: At their worst the symptoms were moderate in the emergency department the symptoms have resolved Pain is currently a 0 / 10. Historical: - Allergies: 04:35 PENICILLINS; ke1 - PMHx: 04:35 Atrial fibrillation; ke1 - Immunization history:: Client reports receiving the 2nd dose of the Covid vaccine. - Social history:: Smoking status: Patient denies any tobacco usage or history of. ROS: 07:13 Constitutional: Negative for fever, and chills. Neck: Negative for injury, pain, and ms3 swelling. 07:13 Respiratory: Negative for shortness of breath, cough, wheezing, and pleuritic chest pain, Abdomen/GI: Negative for abdominal pain, nausea, vomiting, diarrhea, and constipation, MS/Extremity: Negative for injury and deformity, Skin: Negative for injury, rash, and discoloration. 07:13 Cardiovascular: Positive for chest pain, palpitations. 07:13 All other systems are negative. Exam: 04:38 ECG was reviewed by the Attending Physician. ms3 07:13 Constitutional: This is a well developed, well nourished patient who is awake, alert, ms3 and in no acute distress. Head/Face: Normocephalic, atraumatic. Neck: Trachea midline, no cervical lymphadenopathy. Supple, full range of motion without nuchal rigidity, or vertebral point tenderness. No Meningismus. Chest/axilla: Normal chest wall appearance and motion. Nontender with no deformity. Cardiovascular: Regular rate and rhythm with a normal S1 and S2. No gallops, murmurs, or rubs. Normal PMI, no JVD. No pulse deficits. Respiratory: Lungs have equal breath sounds bilaterally, clear to auscultation and percussion. No rales, rhonchi or wheezes noted. No increased work of breathing, no retractions or nasal flaring. Abdomen/GI: Soft, non-tender, with normal bowel sounds. No distension or tympany. No guarding or rebound. No evidence of tenderness throughout. Skin: Warm, dry with normal turgor. Normal color with no rashes, no lesions, and no evidence of cellulitis. Psych: Awake, alert, with orientation to person, place and time. Behavior, mood, and affect are within normal limits. Vital Signs: 04:35 BP 131 / 74; Pulse 88; Resp 18; Temp 98.5; Pulse Ox 99% on R/A; Weight 97.52 kg; Height ke1 5 ft. 5 in. (165.10 cm); Pain 0/10; 05:45 BP 114 / 65; Pulse 79; Resp 13; Pulse Ox 100% on R/A; sm5 06:52 BP 118 / 65; Pulse 73; Resp 18; Pulse Ox 99% on R/A; sm5 07:19 BP 129 / 73; Pulse 73; Pulse Ox 99% on R/A; ap3 04:35 Body Mass Index 35.78 (97.52 kg, 165.10 cm) ke1 MDM: 07:10 Patient medically screened. ms3 07:13 Differential diagnosis: arrythmia. Data reviewed: vital signs, nurses notes, lab test ms3 result(s), EKG, radiologic studies. Data interpreted: hall monitor: Pulse oximetry: on room air is 99 %. Interpretation: normal. Counseling: I had a detailed discussion with the patient and/or guardian regarding: the historical points, exam findings, and any diagnostic results supporting the discharge/admit diagnosis, lab results, radiology results, the need for outpatient follow up, to return to the emergency department if symptoms worsen or persist or if there are any questions or concerns that arise at home. ED course: Discussed labs, EKG, CXR, physical exam findings with patient. Patient to follow-up with her PMD in 2 to 3 days. Patient understands and agrees with plan. All questions were answered. Return precautions discussed include worsening symptoms, or any other concerns. On reevaluation patient symptoms improved, patient is alert and oriented x4, no apparent distress, nontoxic, ambulatory in emergency department.. 03/02 04:49 Order name: Basic Metabolic Panel; Complete Time: 07:10 03/02 04:49 Order name: CBC with Diff; Complete Time: 07:10 03/02 04:49 Order name: Troponin HS; Complete Time: 07:10 03/02 04:49 Order name: XRAY Chest (1 view) 03/02 04:49 Order name: EKG; Complete Time: 04:50 03/02 04:49 Order name: Cardiac monitoring; Complete Time: 04:51 03/02 04:49 Order name: EKG - Nurse/Tech; Complete Time: 04:51 03/02 04:49 Order name: IV Saline Lock; Complete Time: 04:51 03/02 04:49 Order name: Labs collected and sent; Complete Time: 05:04 03/02 04:49 Order name: O2 Per Protocol; Complete Time: 04:51 03/02 04:49 Order name: O2 Sat Monitoring; Complete Time: 04:51 EC:38 Rate is 86 beats/min. Rhythm is regular. QRS [place] is Normal. Clinical impression: NSR ms3 with premature atrial contractions. Interpreted by me. Administered Medications: 05:04 Not Given (had eliquis earlier at home, notifiede): Aspirin Chewable Tablet 324 mg ke1 PO once; 81 mg tablets x 4 Disposition Summary: 03/02/22 07:13 Discharge Ordered Location: Home ms3 Condition: Stable ms3 Diagnosis - Supraventricular tachycardia ms3 Followup: ms3 - With: Private Physician - When: 1 - 2 days - Reason: Recheck today's complaints Discharge Instructions: - Discharge Summary Sheet ms3 - Supraventricular Tachycardia, Adult, [id number] ms3 Forms: - Medication Reconciliation Form ms3 - Thank You Letter ms3 - Antibiotic Education ms3 - Prescription Opioid Use ms3 Signatures: Dispatcher [employer] EDMS David Jarquin DO DO ms3 Ebrottie, Kouassi, RN RN ke1
--- NOTE | 2022-03-02 07:14 | ER ---
Nurse's Notes [facility] Name: Dinorah Castanon Age: 76 yrs Sex: Female : 1945 Arrival Date: 03/02/2022 Time: 04:33 Bed 2 Private MD: Diagnosis: Supraventricular tachycardia Presentation: 03/02 04:33 Chief complaint: EMS states: woke up with heavy chest pressure around 0230, on EMS ke1 arrival HR 198, SVT, adenosine 6 mg given lowered HR to 92. 04:33 Method Of Arrival: EMS: [facility] ke1 04:35 Coronavirus screen: Vaccine status: Patient reports receiving the 2nd dose of the covid ke1 vaccine. Ebola Screen: No symptoms or risks identified at this time. Initial Sepsis Screen: Does the patient meet any 2 criteria? No. Patient's initial sepsis screen is negative. Does the patient have a suspected source of infection? No. Patient's initial sepsis screen is negative. Risk Assessment: Do you want to hurt yourself or someone else? Patient reports no desire to harm self or others. Onset of symptoms was March 02, 2022 at 02:30. 04:35 Acuity: POLO 3 ke1 Triage Assessment: 04:40 General: Appears in no apparent distress. Behavior is appropriate for age. Pain: Denies ke1 pain. Neuro: Level of Consciousness is awake, alert, Oriented to person, place, time, situation. Cardiovascular: Rhythm is sinus rhythm. Respiratory: Trachea midline Respiratory effort is even, unlabored. Historical: - Allergies: 04:35 PENICILLINS; ke1 - PMHx: 04:35 Atrial fibrillation; ke1 - Immunization history:: Client reports receiving the 2nd dose of the Covid vaccine. - Social history:: Smoking status: Patient denies any tobacco usage or history of. Screenin:44 Abuse screen: Denies threats or abuse. Nutritional screening: No deficits noted. ke1 Tuberculosis screening: No symptoms or risk factors identified. Fall Risk No fall in past 12 months (0 pts). No secondary diagnosis (0 pts). IV access (20 points). Ambulatory Aid- None/Bed Rest/Nurse Assist (0 pts). Gait- Normal/Bed Rest/Wheelchair (0 pts) Mental Status- Oriented to own ability (0 pts). Total Garay Fall Scale indicates No Risk (0-24 pts). Assessment: 04:42 Reassessment: see triage. ke1 06:14 Reassessment: Patient appears in no apparent distress at this time. No changes from ke1 previously documented assessment. Patient denies pain at this time. Patient states symptoms have improved. Vital Signs: 04:35 BP 131 / 74; Pulse 88; Resp 18; Temp 98.5; Pulse Ox 99% on R/A; Weight 97.52 kg; Height ke1 5 ft. 5 in. (165.10 cm); Pain 0/10; 05:45 BP 114 / 65; Pulse 79; Resp 13; Pulse Ox 100% on R/A; sm5 06:52 BP 118 / 65; Pulse 73; Resp 18; Pulse Ox 99% on R/A; sm5 07:19 BP 129 / 73; Pulse 73; Pulse Ox 99% on R/A; ap3 04:35 Body Mass Index 35.78 (97.52 kg, 165.10 cm) ke1 ED Course: 04:33 Patient arrived in ED. ke1 04:33 Maite Lawson, RN is Primary Nurse. ke1 04:40 Triage completed. ke1 04:45 Patient has correct armband on for positive identification. Bed in low position. Call ke light in reach. 04:45 Arm band placed on. EKG completed in triage. Results shown to MD. ke1 05:04 XRAY Chest (1 view) In Process Unspecified. EDMS 05:06 Maintain EMS IV. Dressing intact. Gauge \T\ site: L AC 20 g. ke1 06:46 Guy Bruce MD is Attending Physician. 7 07:10 Attending Physician role handed off by Guy Bruce MD ms3 07:10 David Jarquin DO is Attending Physician. ms3 07:22 No provider procedures requiring assistance completed. IV discontinued, intact, ap3 bleeding controlled, No redness/swelling at site. Pressure dressing applied. Administered Medications: 05:04 Not Given (had eliquis earlier at home, notifiede): Aspirin Chewable Tablet 324 mg ke1 PO once; 81 mg tablets x 4 Medication: 06:14 VIS not applicable for this client. ke1 Outcome: 07:13 Discharge ordered by . ms3 07:22 Discharged to home ambulatory. ap3 07:22 Condition: good 07:22 Discharge instructions given to patient, family, Instructed on discharge instructions, follow up and referral plans. Demonstrated understanding of instructions, follow-up care. 07:36 Patient left the ED. ap3 Signatures: Dispatcher [employer] Malorie Smith RN RN ap3 David Jarquin DO DO ms3 Guy Bruce MD MD mh7 Елена Palomares RN RN 5 Maite Lawson RN RN ke1
--- NOTE | 2022-03-02 10:25 | RAD REPORT ---
EXAM DESCRIPTION: RAD - Chest Single View - 03/02/2022 5:03 am CLINICAL HISTORY: The patient is 76 years old and is Female; CHEST PAIN TECHNIQUE: Frontal view of the chest. COMPARISON: No relevant prior studies available. FINDINGS: LUNGS: Unremarkable. No consolidation. PLEURAL SPACE: Unremarkable. No pneumothorax. HEART: Unremarkable. No cardiomegaly. MEDIASTINUM: Unremarkable. BONES/JOINTS: Minimal degenerative change of the bones is noted. UPPER ABDOMEN: Unremarkable as visualized. IMPRESSION: No acute cardiopulmonary process. Electronically signed by: Charu Johnson MD 03/02/2022 5:13 AM CDT Due to temporary technical issues with the PACS/Fluency reporting system, reports are being signed by the in house radiologist without review as a courtesy to ensure prompt reporting. The interpreting r adiologist is fully responsible for the content of the report.
--- NOTE | 2022-03-03 07:53 | EKG ---
Test Date: 2022-03-02 Test Time: 04:38:33 Newborn Hearing Screener: JANELLE MEASUREMENT RESULTS: Intervals: Rate: 86 [place]: 146 QRSD: 96 QT: 386 QTc: 461 [place]: P: 80 [place]: 146 QRS: 21 T: 68 INTERPRETIVE STATEMENTS: Sinus rhythm with premature atrial complexes Otherwise normal ECG Compared to ECG 04/14/2021 03:39:23 Atrial premature complex(es) now present ST (T wave) deviation no longer present Possible ischemia no longer present Electronically Signed On 03-03-22 07:50:37 CDT by Rhys Scott
== END 2022-03-02 07:36 | disposition home or self-care (01) ==
LOC: ER 04:32
DX: I47.1 Supraventricular tachycardia (principal); R07.9 Chest pain, unspecified; I48.91 Unspecified atrial fibrillation; Z88.0 Allergy status to penicillin
CPT/HCPCS: 36415; 71045; 80048; 84484; 85025; 93005; 99284

== ENCOUNTER 2022-07-14 19:23 | Observation (INO) | payer OTHER ==
--- OUTSIDE RECORDS SUMMARY | 2022-07-14 19:26 | XMS REPORT | Continuity of Care Document ---
:1945 Author Organization [facility] t Address [address] [place] [address] Care Team Providers Name Role Phone Kimi Velazquez Attending Clinician Unavailable ESHA SILVESTRE Attending Clinician Unavailable Ariel, Bunny Attending Clinician Unavailable Esha Silvestre MD Attending Clinician Doctor Unassigned, [place] Attending Clinician Unavailable Neo Villa Attending Clinician Unavailable KOSTA STEPHENS Attending Clinician Unavailable JANIA INFANTE Attending Clinician Unavailable JANIA INFANTE Attending Clinician Unavailable Ariel, [place] Admitting Clinician Unavailable Payers Payer Name Policy Type Policy Number Effective Date Expiration Date S doron [employer] MEDICARE ADV [id number] 2017 00:00:00 Problems This patient has no known problems. Allergies, Adverse Reactions, Alerts Allergy Allergy Status Severity Reaction(s) Onset Inactive Treating Comm ents Source Name Type Date Date Clinician [place] DA Active [facility] 7-13 [place] 00:00: [address] Penicill DA Active SV [facility] AND 2020- [facility] ins RASH 7- 00:00: [address] Penicill DA Active SV [facility] AND [facility] ins RASH 12-08 00:00: [address] Penicill DA Active [facility] ins 3 00:00: [address] PENICILL Drug Active [facility] INS Class 8-10 ity of 00:00: [address] Medications This patient has no known medications. Procedures This patient has no known procedures. Encounters Start End Encounter Admission Attending Care Care Encounter Source Date/Time Date/Time Type Type Clinicians Facility Department ID 2022-03-12 Outpatient Velazquez, Na STLMLC STLMLC [id number] Common 10:34:01 [facility] 2021-10-28 Outpatient Velazquez, Na STLMLC STLMLC [id number] Common 14:23:55 [id number] [facility] 2021-10-28 Outpatient Velazquez, Na STLMLC STLMLC [id number] Common 13:50:36 [id number] [facility] 2021-10-28 Outpatient STLMLC STLMLC [id number] Common 13:47:37 [id number] [facility] 2021-08-01 Emergency [facility] [id number] Univers 13:08:07 ity of [facility] 2022-05-22 2022-05-22 ambulatory STLMLC STLMLC [id number] Common 00:00:00 00:00:00 [facility] 2022-05-18 2022-05-18 ambulatory STLMLC STLMLC [id number] Common 00:00:00 00:00:00 [facility] 2022-03-16 2022-03-16 ambulatory STLMLC STLMLC [id number] Common 00:00:00 00:00:00 [facility] 2022-03-16 2022-03-16 ambulatory STLMLC STLMLC [id number] Common 00:00:00 00:00:00 [facility] 2022-01-27 2022-01-27 ambulatory STLMLC STLMLC [id number] Common 00:00:00 00:00:00 [facility] 2021-10-11 2021-10-11 ambulatory STLMLC STLMLC [id number] Common 00:00:00 00:00:00 [facility] 2021-08-09 2021-08-09 ambulatory STLMLC STLMLC [id number] Common 00:00:00 00:00:00 [facility] 2021-06-11 2021-06-11 Outpatient STLMLC STLMLC [id number] Common 00:00:00 00:00:00 [facility] 2021-04-27 2021-04-27 [facility] [id number] Univers 15:15:00 15:15:00 ESHA [id number] [facility] 2021-04-27 2021-04-27 [facility] [id number] Univers 15:15:00 15:15:00 ESHA [facility] 2021-04-14 2021-04-16 Inpatient UR Ariel, HCAWU TELE [id number] [facility] 15:23:00 15:32:00 [place] 24 [facility] 2021-03-23 2021-03-23 [facility] [id number] Univers 10:15:00 10:15:00 ESHA [id number] [facility] 2021-03-23 2021-03-23 [facility] [id number] Univers 10:15:00 10:15:00 ESHA [facility] 2021-03-03 2021-03-03 Telephone [facility] [id number] 00:00:00 00:00:00 [facility] [id number] Fredy Reeves [id number] Jessi [id number] nal [address] 2021-02-23 2021-02-23 Office [facility] [id number] 09:42:48 10:07:36 [place] [id number] [facility] [id number] nal 0[address] 2021-02-23 2021-02-23 Outpatient R SHEMAR [facility] [id number] Univers 10:00:00 10:00:00 ESHA [id number] ity [facility] 2021-02-23 2021-02-23 [facility] [id number] Univers 10:00:00 10:00:00 ESHA [facility] 2021-02-23 2021-02-23 Orders Doctor ERIC [id number] 00:00:00 00:00:00 Only Unassigned, [place] [id number] [place] [facility] [id number] 2020-12-04 2020-12-04 Outpatient Daisy, HCAWU HCAWU [id number] [facility] 11:31:44 11:31:44 Neo 60 [facility] 2020-12-02 2020-12-02 Outpatient R [facility] [id number] Univers 19:30:00 19:30:00 [id number] ity [facility] 2020-12-02 2020-12-02 Outpatient R [facility] [id number] Univers 19:30:00 19:30:00 ity [facility] 2020-11-28 2020-11-28 Outpatient R [facility] [id number] Univers 10:30:00 10:30:00 [id number] ity [facility] 2020-11-28 2020-11-28 Outpatient R [facility] [id number] Univers 10:30:00 10:30:00 ity [facility] 2020-11-28 2020-11-28 Outpatient R [facility] [id number] Univers 08:00:00 08:00:00 ity [facility] 2020-11-10 2020-11-10 Outpatient [facility] [id number] Univers 10:00:00 10:00:00 ESHA [id number] ity [facility] 2020-11-10 2020-11-10 Outpatient Chandan SILVESTRE [facility] [id number] Univers 10:00:00 10:00:[facility] 2020-11-07 Outpatient Chandan SILVESTRE [facility] [id number] Univers 09:30:00 09:30:00 [facility] [id number] [facility] 2020-11-06 2020-11-06 Outpatient Chandan STEPHENS [facility] [id number] Univers 15:00:00 15:00:00 [facility] 2020-11-06 2020-11-06 Outpatient Chandan KAT, [facility] [id number] Univers 08:50:00 08:50:00 KOSTA [id number] [facility] 2020-10-17 2020-10-17 Outpatient R [facility] [id number] Univers 19:30:00 19:30:00 [id number] [facility] 2020-10-17 2020-10-17 Outpatient R JANIA INFANTE [facility] [id number] Univers 19:30:00 19:30:00 VIANEYISABELLA DUMONTChas [facility] 2020-10-15 2020-10-15 Outpatient R [facility] [id number] Univers 10:15:00 10:15:00 [id number] [facility] 2020-10-15 2020-10-15 Outpatient R [facility] [id number] Univers 10:15:00 10:[facility] 2020-10-[facility] 2020-10-09 Outpatient Chandan HUNTKAT, [facility] [id number] Univers 08:50:00 08:50:00 KOSTA [id number] [facility] 2020-10-09 2020-10-09 Outpatient Chandan HUNTKAT, [facility] [id number] Univers 08:50:00 08:50:00 KOSTA [facility] Results Test Description Test Time Test Comments Results Result Comments Source THYROID STIMULATING HORMONE 2021-04-15 22:23:00 Test Item Value Reference Range Interpretation Comme nts THYROID STIMULATING HORMONE 0.918 MIU/L 0.465-4.68 N Please be aware that bias (test code = TSH) results fo r TSH may occur forpatient who are taking Biotin suppleme nts. GLUCOSE BEDSIDE [id number] 19:07:00 Test Item Value Reference Range Interpretation Comments GLUCOSE BEDSIDE TESTING (test code 111 MG/DL 60-99 H = GLUBED) COMPREHENSIVE METABOLIC [id number] 05:38:00 Test Item Value Reference Range Interpretation [...] newinformation regarding the potential i nterference ofEltrombopag ( a bone marrow stimulan t used to treatthrombocyt onmenia and aplastic anemia ) with specific assays on the Vitros 5600 of which Total Protein is one of thoseassays per formed in our lab.Interfe rence testing perform ed at [facility] determined that Eltrombopag does interfere with Vitros Total Protein asfollowsEltrom bopag Interference fo r Vitros Product Total Protein:======= Eltrombopag Max Observed Av g. BiasConcentrati on Concentration Concentration== ==== 2.5 mg/dl 6.0 g/dl +0.41 +0.34 3.5 mg/dl 6.0 g /dl +0.50 +0.45 5 mg/dl 6 .0 g/dl +0.73 +0.65 2.5 mg/dl 8.0 g/dl +0.44 +0.4 1 3.5 mg/dl 8.0 g/dl +0.55 +0.52 5 mg/dl 8.0 g/dl +0.86 +0.77 ALBUMIN (test 3.8 G/DL 3.5-5.0 N code = ALB) CALCIUM (test 8.8 MG/DL 8.4-10.2 N code = CA) BILIRUBIN TOTAL 0.7 MG/DL 0.2-1.3 N Eltrombopag Interference (test code = for Vitros Prod uct TBil, BILT) BuBc: Assa y Eltrombopag Karolyn lyte/ Max Observed Avg. B ias Concentration C oncentration Concentration== ====TBil 7mg/dl TBil/ 1. 2mg/dl +0.23mg.dl +0.2 0mg/dlBuBc 3.5mg/dl Bu/0.8 mg/dl +0.25mg/dl +0.2 4mg/dlBuBc 7 mg/dl Bu/14.2mg /dl +0.38mg/dl +0.2 5mg/dlBuBc 5mg/dl Bc/0mg/d l +0.25mg/dl +0.15mg/dlBuBc 3.5mg/dl Bc/2.8mg/dl +0. 25mg/dl +0.23mg/dl SGOT/AST (test 22 UNITS/L 14-36 N [...] LIPOPROTEIN LDL (test 114 MG/DL 0-99 H OPTIM AL.........<100 code = LDL) mg/dLNEAR OPTIMAL/ABOVE OPTIMAL........ .100-12 9 mg/dL BORDERL INE HIGH.........13 0-159 mg/dL HIGH.........16 0-189 mg/dL VERY HIGH.........>/ = 190 mg/dL COMPREHENSIVE METABOLIC [id number] 05:27:00 Test Item Value Reference Range Interpretation [...] newinformation regarding the potential i nterference ofEltrombopag ( a bone marrow stimulan t used to treatthrombocyt onmenia and aplastic anemia ) with specific assays on the Vitros 5600 of which Total Protein is one of thoseassays per formed in our lab.Interfe rence testing perform ed at [facility] determined that Eltrombopag does interfere with Vitros Total Protein asfollowsEltrom bopag Interference fo r Vitros Product Total Protein:======= Eltrombopag Max Observed Av g. BiasConcentrati on Concentration Concentration== ==== 2.5 mg/dl 6.0 g/dl +0.41 +0.34 3.5 mg/dl 6.0 g /dl +0.50 +0.45 5 mg/dl 6 .0 g/dl +0.73 +0.65 2.5 mg/dl 8.0 g/dl +0.44 +0.4 1 3.5 mg/dl 8.0 g/dl +0.55 +0.52 5 mg/dl 8.0 g/dl +0.86 +0.77 ALBUMIN (test 3.8 G/DL 3.5-5.0 N code = ALB) CALCIUM (test 8.8 MG/DL 8.4-10.2 N code = CA) BILIRUBIN TOTAL 0.7 MG/DL 0.2-1.3 N Eltrombopag Interference (test code = for Vitros Prod uct TBil, BILT) BuBc: Assa y Eltrombopag Karolyn lyte/ Max Observed Avg. B ias Concentration C oncentration Concentration== ====TBil 7mg/dl TBil/ 1. 2mg/dl +0.23mg.dl +0.2 0mg/dlBuBc 3.5mg/dl Bu/0.8 mg/dl +0.25mg/dl +0.2 4mg/dlBuBc 7 mg/dl Bu/14.2mg /dl +0.38mg/dl +0.2 5mg/dlBuBc 5mg/dl Bc/0mg/d l +0.25mg/dl +0.15mg/dlBuBc 3.5mg/dl Bc/2.8mg/dl +0. 25mg/dl +0.23mg/dl SGOT/AST (test 22 UNITS/L 14-36 N [...] MG/DL 0-99 code = LDL) CBC W/AUTO [id number] 05:14:00 Test Item Value Reference Range Interpretation [...] code = 0.00 K/mm3 0.0-0.1 N NRBC#) [id number] 21:09:00 Test Item Value Reference Range Interpretation Comments TROPONIN-I (test 0.258 NG/ML 0.012-0.033 HH CALLED TO Chas Gant& code = TROPI) READBACK ON AT 2109 BY Francesco Capps LIPOPROTEIN LDL [id number] 16:23:00 Test Item Value Reference Range Interpretation Comments LIPOPROTEIN LDL DIRECT 119 mg/dL 100-129 N ===== (test code = LDLDIR) ======= ====R eference Interv al: mg/dL mmol/L--------- ----- ----- ----- -----Optimal <1 00 <2.6Near/above optimal 100-129 2.6-3.3Borderli ne High 130-159 3.4-4.1High 160 -189 4.1-4.9Very Hig h >=190 >=4.9==== ===== This LDL result is a direct measurement.=== ===== = [id number] 16:23:00 Test Item Value Reference Range Interpretation Comments TROPONIN-I (test 0.242 NG/ML 0.012-0.033 CALLED TO Parvez Jones& code = TROPI) READBACK ON AT 1606 BY Francesco Capps LIPOPROTEIN LDL [id number] 16:06:00 Test Item Value Reference Range Interpretation Comments LIPOPROTEIN LDL DIRECT (test code = mg/dL 100-129 LDLDIR) [id number] 16:06:00 Test Item Value Reference Range Interpretation Comments TROPONIN-I (test 0.242 NG/ML 0.012-0.033 CALLED TO Parvez Jones& code = TROPI) READBACK ON AT 1606 BY Francesco Capps BASIC METABOLIC [id number] 08:09:00 Test Item Value Reference Range Interpretation [...] 7.8 MG/DL 8.4-10.2 L CA) CBC W/AUTO [id number] 07:46:00 Test Item Value Reference Range Interpretation [...] 0.00 K/mm3 0.0-0.1 N NRBC#) GLUCOSE BEDSIDE [id number] 18:37:00 Test Item Value Reference Range Interpretation Comments GLUCOSE BEDSIDE TESTING (test code 127 MG/DL 60-99 H = GLUBED) [id number] 10:57:00 Test Item Value Reference Range Interpretation Comments ACT-ISTAT (test code = ACTI) 323 SEC 74-137 H [id number] 10:37:00 Test Item Value Reference Range Interpretation Comments ACT-ISTAT (test code = ACTI) 301 SEC 74-137 H [id number] 10:17:00 Test Item Value Reference Range Interpretation Comments ACT-ISTAT (test code = ACTI) 285 SEC 74-137 H [id number] 09:57:00 Test Item Value Reference Range Interpretation Comments ACT-ISTAT (test code = ACTI) 290 SEC 74-137 H BASIC METABOLIC [id number] 06:52:00 Test Item Value Reference Range Interpretation [...] code = 8.9 MG/DL 8.4-10.2 N CA) [id number] 06:52:00 Test Item Value Reference Range Interpretation Comments MAGNESIUM (test code = MAG) 2.1 MG/DL 1.6-2.3 N PROTHROMBIN [id number] 06:49:00 Test Item Value Reference Range Interpretation Comments PROTHROMBIN TIME PATIENT 12.7 9.5-12.7 N (test code = PTP) INTERNATIONAL NORMAL RATIO 1.2 0.86-1.14 H T he INR is to be used (test code = INR) only for m onitoring oral anticoagulantth erapy. INDICATION INR VALUE ------- ------- -----1. Prophylaxis, de ep venous thrombos is, including high risk surgery. 2.0 - 3.0 2. Prophylaxis, de ep venous thrombos is, hip surgery, treatm ent for deep venous thr ombosis or pulmonary prevention of s ystemic embolism in pat ients with valvular h eart disease, atrial fibrillation, tissue heart valve, or acute myocardial infa rction. 2.0 - 3.0 3. Mechanical pros thesis heart valves, recurrent syste gwendolyn embolism. 3.0 - 4.5 PTT [id number] 06:49:00 Test Item Value Reference Range Interpretation Comments PTT ACTIVATED (test code = APTT) 33.3 SECONDS 25.1-36.5 N CBC W/AUTO [id number] 06:39:00 Test Item Value Reference Range Interpretation [...] K/mm3 0.0-0.1 N NRBC#) COVID Asymptomatic IH [id number] 14:18:00 Test Item Value Reference Interpretation Comments [...] i ts performancechar acteristics were determined by [facility]. Thi s test has notbeen FDA barrera [...]
--- NOTE | 2022-07-14 22:50 | ER ---
Nurse's Notes [facility] Name: Dinorah Castanon Age: 77 yrs Sex: Female : 1945 Arrival Date: 07/14/2022 Time: 19:27 Bed 7 Private MD: Diagnosis: Chest pain, unspecified;Dyspnea;Bradycardia, unspecified;termite treater helper (current) use of anticoagulants;Cardiomegaly;Pleural effusion, not elsewhere classified-bilateral;Systolic (congestive) heart failure Presentation: 07/14 19:42 Chief complaint: Patient states: Pt reports mid-sternal CP that began at 1300 today kb3 with associated high blood pressure and SOB. Pt reports exertional SOB is normal for her but the SOB has been constant today. Coronavirus screen: Vaccine status: Patient reports receiving the 2nd dose of the covid vaccine. Client denies travel out of the [place] in the last 14 days. Ebola Screen: Patient negative for fever greater than or equal to 101.5 degrees Fahrenheit, and additional compatible Ebola Virus Disease symptoms Patient denies exposure to infectious person. Patient denies travel to an Ebola-affected area in the 21 days before illness onset. No symptoms or risks identified at this time. Initial Sepsis Screen: Does the patient meet any 2 criteria? No. Patient's initial sepsis screen is negative. Does the patient have a suspected source of infection? No. Patient's initial sepsis screen is negative. Risk Assessment: Do you want to hurt yourself or someone else? Patient reports no desire to harm self or others. Onset of symptoms was July 14, 2022 at 13:00. 19:42 Method Of Arrival: Ambulatory 3 19:42 Acuity: POLO 3 kb3 Triage Assessment: 19:46 General: Appears in no apparent distress. Behavior is calm, cooperative. Pain: kb3 Complains of pain in mid-sternal area Pain does not radiate. Pain currently is 8 out of 10 on a pain scale. Quality of pain is described as pressure, Pain began 1300 today. Respiratory: Reports shortness of breath at rest on exertion the patient has moderate shortness of breath. Historical: - Allergies: 19:46 PENICILLINS; kb3 - PMHx: 19:46 Atrial fibrillation; Hypertensive disorder; kb3 - PSHx: 19:46 Cardiac Ablation; kb3 - Immunization history:: Adult Immunizations up to date, Client reports receiving the 2nd dose of the Covid vaccine, Last tetanus immunization: up to date. - Social history:: Smoking status: Patient denies any tobacco usage or history of. Screenin:24 Abuse screen: Denies threats or abuse. Nutritional screening: No deficits noted. kl Tuberculosis screening: No symptoms or risk factors identified. Fall Risk None identified. Assessment: 22:23 General: Appears in no apparent distress. comfortable, well groomed, well developed, Behavior is calm, cooperative, appropriate for age. Cardiovascular: No deficits noted. Reports chest pain, off and on x 1 week Rhythm is sinus bradycardia. Respiratory: Airway is patent Respiratory effort is even, unlabored, Breath sounds are clear bilaterally. GI: No deficits noted. No signs and/or symptoms were reported involving the gastrointestinal system. : No deficits noted. No signs and/or symptoms were reported regarding the genitourinary system. EENT: No deficits noted. No signs and/or symptoms were reported regarding the EENT system. Derm: No deficits noted. No signs and/or symptoms reported regarding the dermatologic system. Musculoskeletal: No deficits noted. No signs and/or symptoms reported regarding the musculoskeletal system. 07/15 00:04 Reassessment: Patient appears in no apparent distress at this time. Patient and/or kl family updated on plan of care and expected duration. Pain level reassessed. Patient is alert, oriented x 3, equal unlabored respirations, skin warm/dry/pink. Patient states feeling better. Vital Signs: 07/14 19:42 BP 177 / 70; Pulse 62; Resp 20; Temp 98.8; Pulse Ox 99% ; Weight 95.25 kg; Height 5 ft. kb3 6 in. (167.64 cm); Pain 5/10; 22:22 BP 146 / 72; Pulse 56; Resp 18; Pulse Ox 99% on R/A; kl 07/15 00:03 BP 161 / 69; Pulse 49; Resp 18; Pulse Ox 95% on R/A; kl 00:54 BP 153 / 76; Pulse 58; Resp 20; Pulse Ox 95% on R/A; kl 04:15 BP 143 / 66; Pulse 46; Resp 11 S; Pulse Ox 98% on R/A; as6 07/14 19:42 Body Mass Index 33.89 (95.25 kg, 167.64 cm) kb3 ED Course: 07/14 19:27 Patient arrived in ED. dt4 19:46 Triage completed. kb3 19:46 Arm band placed on right wrist. kb3 22:03 Hoang Bermudez MD is Attending Physician. [facility] 22:18 Wojciech Gonzales, RN is Primary Nurse. as6 22:22 Inserted saline lock: 20 gauge in left antecubital area, using aseptic technique. Blood kl collected. 22:48 Duane Farley MD is Hospitalizing Provider. lavell 23:13 SARS RAPID Sent. as6 23:14 Assisted to bathroom. as6 07/15 04:15 Placed in gown. Bed in low position. Call light in reach. Side rails up X 1. as6 04:51 No provider procedures requiring assistance completed. Patient admitted, IV remains in as6 place. Administered Medications: 07/14 22:45 CANCELLED (Duplicate Order): Bystolic 2.[address] [facility] 23:13 Drug: Eliquis (apixaban) 5 mg Route: PO; as6 07/15 04:52 Follow up: Response: No adverse reaction as6 07/14 23:13 Drug: ProTONIX (pantoprazole) 40 mg Route: IVP; Site: right antecubital; as6 07/15 04:52 Follow up: Response: No adverse reaction as6 00:37 Drug: Lasix (furosemide) 20 mg Route: IVP; Site: right antecubital; 04:52 Follow up: Response: No adverse reaction as6 Medication: 04:52 VIS not applicable for this client. as6 Outcome: 07/14 22:49 Decision to Hospitalize by Provider. [facility] 07/15 04:51 Admitted to Tele accompanied by nurse, via wheelchair, room 410, with chart, Report as6 called to Caron MARTIN Condition: stable Instructed on the need for admit. 04:53 Patient left the ED. as6 Signatures: Emma Acosta RN RN kl Anderson, Corey, MD MD cha Slawson, Ashby, RN RN as6 Maite Staton RN RN kb3 Livier Mercado dt4 Corrections: (The following items were deleted from the chart) 07/14 19:49 19:46 PSHx: Chronic CP; kb3 kb3 19:49 19:46 PSHx: Chronic SOB; kb3 kb3
--- NOTE | 2022-07-14 22:50 | EDPHYS ---
Physician Documentation [facility] Name: Dinorah Castanon Age: 77 yrs Sex: Female : 1945 Arrival Date: 07/14/2022 Time: 19:27 Bed 7 Private MD: ED Physician Hoang Bermduez HPI: 07/14 22:35 This 77 yrs old Female presents to ER via Ambulatory with complaints of lavell Breathing Difficulty, Chest Pain, High Blood Pressure. 22:35 The patient has shortness of breath at rest, with light activity. Onset: The lavell symptoms/episode began/occurred today. Duration: The symptoms are continuous, and are steadily getting worse. The patient's shortness of breath is aggravated by walking, is alleviated by rest. Associated signs and symptoms: Pertinent positives: non-productive cough. Severity of symptoms: At their worst the symptoms were mild in the emergency department the symptoms are unchanged. The patient has not experienced similar symptoms in the past. CP , SOB. Historical: - Allergies: 19:46 PENICILLINS; kb3 - PMHx: 19:46 Atrial fibrillation; Hypertensive disorder; kb3 - PSHx: 19:46 Cardiac Ablation; kb3 - Immunization history:: Adult Immunizations up to date, Client reports receiving the 2nd dose of the Covid vaccine, Last tetanus immunization: up to date. - Social history:: Smoking status: Patient denies any tobacco usage or history of. ROS: 22:38 Constitutional: Negative for fever, chills, and weight loss, Eyes: Negative for injury, lavell pain, redness, and discharge, ENT: Negative for injury, pain, and discharge, Neck: Negative for injury, pain, and swelling, Respiratory: Negative for shortness of breath, cough, wheezing, and pleuritic chest pain, Abdomen/GI: Negative for abdominal pain, nausea, vomiting, diarrhea, and constipation, Back: Negative for injury and pain, : Negative for injury, bleeding, discharge, and swelling, MS/Extremity: Negative for injury and deformity, Skin: Negative for injury, rash, and discoloration, Neuro: Negative for headache, weakness, numbness, tingling, and seizure. 22:38 Cardiovascular: Positive for chest pain, palpitations. Exam: 22:38 Constitutional: This is a well developed, well nourished patient who is awake, alert, lavell and in no acute distress. Head/Face: Normocephalic, atraumatic. Eyes: Pupils equal round and reactive to light, extra-ocular motions intact. Lids and lashes normal. Conjunctiva and sclera are non-icteric and not injected. Cornea within normal limits. Periorbital areas with no swelling, redness, or edema. ENT: Nares patent. No nasal discharge, no septal abnormalities noted. Tympanic membranes are normal and external auditory canals are clear. Oropharynx with no redness, swelling, or masses, exudates, or evidence of obstruction, uvula midline. Mucous membranes moist. Neck: Trachea midline, no thyromegaly or masses palpated, and no cervical lymphadenopathy. Supple, full range of motion without nuchal rigidity, or vertebral point tenderness. No Meningismus. Chest/axilla: Normal chest wall appearance and motion. Nontender with no deformity. No lesions are appreciated. Cardiovascular: Regular rate and rhythm with a normal S1 and S2. No gallops, murmurs, or rubs. Normal PMI, no JVD. No pulse deficits. Respiratory: Lungs have equal breath sounds bilaterally, clear to auscultation and percussion. No rales, rhonchi or wheezes noted. No increased work of breathing, no retractions or nasal flaring. Abdomen/GI: Soft, non-tender, with normal bowel sounds. No distension or tympany. No guarding or rebound. No evidence of tenderness throughout. Back: No spinal tenderness. No costovertebral tenderness. Full range of motion. Female : Normal external genitalia. Skin: Warm, dry with normal turgor. Normal color with no rashes, no lesions, and no evidence of cellulitis. MS/ Extremity: Pulses equal, no cyanosis. Neurovascular intact. Full, normal range of motion. Neuro: Awake and alert, GCS 15, oriented to person, place, time, and situation. Cranial nerves II-XII grossly intact. Motor strength 5/5 in all extremities. Sensory grossly intact. Cerebellar exam normal. Normal gait. Psych: Awake, alert, with orientation to person, place and time. Behavior, mood, and affect are within normal limits. 22:45 ECG was reviewed by the Attending Physician. [facility] Vital Signs: 19:42 BP 177 / 70; Pulse 62; Resp 20; Temp 98.8; Pulse Ox 99% ; Weight 95.25 kg; Height 5 ft. kb3 6 in. (167.64 cm); Pain 5/10; 22:22 BP 146 / 72; Pulse 56; Resp 18; Pulse Ox 99% on R/A; kl 07/15 00:03 BP 161 / 69; Pulse 49; Resp 18; Pulse Ox 95% on R/A; kl 00:54 BP 153 / 76; Pulse 58; Resp 20; Pulse Ox 95% on R/A; kl 04:15 BP 143 / 66; Pulse 46; Resp 11 S; Pulse Ox 98% on R/A; as6 07/14 19:42 Body Mass Index 33.89 (95.25 kg, 167.64 cm) kb3 MDM: 07/14 22:03 Patient medically screened. lavell 22:03 Patient medically screened. lavell 22:40 Differential diagnosis: Anemia Anxiety Reaction Bronchitis CHF exacerbation, Chronic lavell Obstructive Pulmonary Disease Myocardial Infarction pneumonia, pulmonary edema, Pulmonary Embolism Unstable Angina. Antibiotic administration: Not indicated. The patient's Wells Deep Vein Thrombosis Score was calculated as follows: Total Score: 0-2 Pts- Low Risk. The patient's pulmonary embolism risk score was calculated as follows: Total Score: 0-2 points. This patient was found to be at low risk for a pulmonary embolism by using the Well's assessment criteria. Immunization status: Pneumococcal vaccine: Influenza vaccine: Data reviewed: vital signs, nurses notes, lab test result(s), EKG, radiologic studies, CT scan, plain films. Data interpreted: panel monitor: rate is 56 beats/min, Pulse oximetry: on room air is 99 %. Test interpretation: by ED physician or midlevel provider: ECG, plain radiologic studies. Counseling: I had a detailed discussion with the patient and/or guardian regarding: the historical points, exam findings, and any diagnostic results supporting the discharge/admit diagnosis, lab results, radiology results, the need for further work-up and treatment in the hospital. 07/14 Order name: Basic Metabolic Panel [facility] 07/14 Order name: CBC with Diff [facility] 07/14 Order name: LFT's [facility] 07/14 22: Order name: Magnesium [facility] 07/14 22: Order name: NT PRO-BNP [facility] 07/14 Order name: PT-INR [facility] 10/12 22:31 Order name: Troponin HS [facility] 07/14 22:31 Order name: SARS RAPID [facility] 07/14 22:31 Order name: Lipase [facility] 07/14 23:03 Order name: CBC with Automated Diff; Complete Time: 23:20 EDMS 07/14 23:14 Order name: Protime (+INR); Complete Time: 23:20 EDMS 07/14 23:25 Order name: Basic Metabolic Panel; Complete Time: 23:28 EDMS 07/14 23:25 Order name: Liver (Hepatic) Function; Complete Time: 23:28 EDMS 07/14 23:25 Order name: Troponin High Sensitivity; Complete Time: 23:28 EDMS 07/14 22:31 Order name: XRAY Chest (1 view) [facility] 07/14 22:31 Order name: EKG; Complete Time: 22:32 [facility] 07/14 22:31 Order name: Cardiac monitoring; Complete Time: 22:41 [facility] 07/14 22:31 Order name: EKG - Nurse/Tech; Complete Time: 22:41 [facility] 07/14 22:31 Order name: IV Saline Lock; Complete Time: 22:42 [facility] 07/14 22:31 Order name: Labs collected and sent; Complete Time: 22:42 [facility] 07/14 22:31 Order name: CT Chest For PE Angio [facility] 07/14 22:58 Order name: RAD; Complete Time: 23:01 EDMS 07/14 23:25 Order name: NT PRO-BNP; Complete Time: 23:28 EDMS 07/14 23:25 Order name: Magnesium; Complete Time: 23:28 EDMS 07/14 23:25 Order name: Lipase; Complete Time: 23:28 EDIA 07/14 23:48 Order name: SARS-COV-2 Antigen Rapid; Complete Time: 23:51 EDMS 07/14 22:31 Order name: O2 Per Protocol; Complete Time: 22:42 [facility] 07/14 22:31 Order name: O2 Sat Monitoring; Complete Time: 22:42 [facility] EC:45 Rate is 58 beats/min. Rhythm is regular. QRS [place] is Normal. [place] interval is normal. QRS lavell interval is normal. QT interval is prolonged at 58 msec. No Q waves. T waves are Normal. No ST changes noted. Clinical impression: Sinus bradycardia and No evidence of ischemia. Interpreted by me. Reviewed by me. Administered Medications: 22:45 CANCELLED (Duplicate Order): Bystolic 2.5 mg PO once [facility] 23:13 Drug: Eliquis (apixaban) 5 mg Route: PO; as6 07/15 04:52 Follow up: Response: No adverse reaction as6 07/14 23:13 Drug: ProTONIX (pantoprazole) 40 mg Route: IVP; Site: right antecubital; as6 07/15 04:52 Follow up: Response: No adverse reaction as6 00:37 Drug: Lasix (furosemide) 20 mg Route: IVP; Site: right antecubital; 04:52 Follow up: Response: No adverse reaction as6 Disposition Summary: 07/14/22 22:49 Hospitalization Ordered Provider: Duane Farley cha Condition: Fair lavell Problem: new lavell Symptoms: have improved lavell Bed/Room Type: Standard lavell Hospitalization Status: Inpatient Admission(07/15/22 03:04) lavell Location: Telemetry/MedSurg (Inpatient)(07/15/22 03:04) lavell Room Assignment: [facility](07/15/22 04:31) eb Diagnosis - Chest pain, unspecified lavell - Dyspnea lavell - Bradycardia, unspecified lavell - half-way (current) use of anticoagulants lavell - Cardiomegaly lavell - Pleural effusion, not elsewhere classified - bilateral lavell - Systolic (congestive) heart failure lavell Forms: - Medication Reconciliation Form lavell - SBAR form lavell Signatures: Dispatcher [employer] EDMS Emma Acosta RN RN kl Anderson, Corey, MD MD cha Attema, Lee, GENERAL FARMWORKER-C GENERAL FARMWORKER-Cla1 Juanita Blanco RN RN eb1 Wojciech Gonzales RN RN as6 Maite Staton RN RN kb3 Corrections: (The following items were deleted from the chart) 07/14 19:49 19:46 PSHx: Chronic CP; kb3 kb3 19:49 19:46 PSHx: Chronic SOB; kb3 kb3 22:45 22:31 Bystolic 2.5 mg PO once ordered. lavell lavell 07/15 03:04 07/14 22:49 Observation lavell lavell 07/15 03:04 07/14 22:49 Telemetry/MedSurg (observation) lavell lavell 07/15 03:04 07/14 22:49 lavell lavell 07/15 04:31 03:04 lavell eb1
--- NOTE | 2022-07-14 22:55 | RAD REPORT ---
EXAM DESCRIPTION: aHnt Single View07/14/2022 10:50 pm CLINICAL HISTORY: Chest pain COMPARISON: January 2022 FINDINGS: The lungs appear clear of acute infiltrate. The heart is mildly enlarged IMPRESSION: No acute abnormalities displayed
[2022-07-14] MEDS ORDERED: APIXABAN 5 MG TABLET ONE (22:58)
[2022-07-14] MEDS ORDERED: PANTOPRAZOLE 40 MG INJ ONE (22:58)
[2022-07-14 23:02] LABS: Absolute Lymphocytes (CBC) 0.7 K/uL (0.7-4.9); Hematocrit 38.4 % (36.0-45.0); Lymphocytes % 17.9 % (15.3-44.8); MCV 90.4 fL (80-100); MPV 8.8 fL (7.6-11.3); RBC Red Blood Cell Count 4.24 M/uL (3.86-4.86)
[2022-07-14 23:14] LABS: Protime INR 1.35
[2022-07-14 23:25] LABS: Albumin 3.9 g/dL (3.4-5.0); Bilirubin Direct 0.4 mg/dL (0-0.2); Bilirubin Total 1.3 mg/dL (0.2-1.0); Magnesium 2.3 mg/dL (1.8-2.4); Protein, Total 6.8 g/dL (6.4-8.2); Troponin High Sensitivity 12.8 pg/mL (<58.9)
[2022-07-14 23:48] LABS: SARS-CoV-2 Antigen Rapid Res Negative (Negative)
[2022-07-15] MEDS ORDERED: FUROSEMIDE 20 MG/ 2ML VIAL ONE (00:30)
--- NOTE | 2022-07-15 01:45 | P.HP ---
Certification for Inpatient Patient admitted to: Observation With expected LOS: >2 Midnights Patient will require the following post-hospital care: None Practitioner: I am a practitioner with admitting privileges, knowledge of patient current condition, hospital course, and medical plan of care. Services: Services provided to patient in accordance with Admission requirements found in Title 42 Section 412.3 of the Code of Federal Regulations <Payam Betancur - Last Filed: 07/15/22 18:08> Patient History Date of Service: 07/15/22 Primary Care Provider: Dr. Velazquez, Dr. narayan Reason for admission: Chest pain, dyspnea on exertion History of Present Illness: 77-year-old female with history of atrial fibrillation on chronic anticoagulation, hypertension presents the emergency department for chest pain, dyspnea on exertion. Patient reports symptoms of been intermittent over the course the last 1 to 2 weeks worsening. She is evaluated in the emergency department her labs were significant for elevated BNP 1940 6T bili 1.3D bili 0.4 sodium 135 chest x-ray negative for acute findings CT PE protocol showed mild bilateral pleural effusions no pulmonary embolism. Patient with chest tightness throughout the day today especially with exertion. She has had an ablation in the past for her A. fib. ED provider wishes to admit under observation for chest pain, dyspnea on exertion suspected new CHF. - Past Medical/Surgical History -: A. fib on chronic anticoagulation -: Hypertension -: Ablation Psychosocial/ Personal History: Patient lives at home, alone is retired. - Family History Family History: Reviewed- Non-Contributory - Social History Smoking Status: Never smoker Alcohol use: No CD- Drugs: No Caffeine use: Yes Place of Residence: Home <Payam Betancur - Last Filed: 07/15/22 18:08> Date of Service: 07/15/22 <Duane Farley - Last Filed: 07/15/22 21:04> Allergies Penicillins Allergy (Verified 07/15/22 04:57) Anaphylaxis Home Medications: Amiodarone HCl [Cordarone Tab] 200 mg PO DAILY 07/15/22 Apixaban [Eliquis] 2.5 mg PO BID 07/15/22 Cholecalciferol (Vitamin D3) [Vitamin D 1000 Iu Tab] 1,000 unit PO DAILY 07/15/22 Cyanocobalamin [Vitamin B-12] 1,000 mcg PO DAILY 07/15/22 Ferrous Sulfate [Iron] 325 mg PO BID 07/15/22 Nebivolol HCl [Bystolic] 2.5 mg PO DAILY 07/15/22 PARoxetine HCL [Paxil] 10 mg PO DAILY 07/15/22 Review of Systems 10-point ROS is otherwise unremarkable Respiratory: SOB with Excertion Cardiovascular: Chest Pain <Payam Betancur - Last Filed: 07/15/22 18:08> Physical Examination - Physical Exam General: Alert, In no apparent distress, Oriented x3 HEENT: Atraumatic, PERRLA, Mucous membr. moist/pink, EOMI, Sclerae nonicteric Neck: Supple, 2+ carotid pulse no bruit, No LAD, Without JVD or thyroid abnormality Respiratory: Diminished Cardiovascular: No edema, Regular rate/rhythm, Normal S1 S2 Capillary refill: <2 Seconds Gastrointestinal: Normal bowel sounds, No tenderness Musculoskeletal: No tenderness Integumentary: No rashes Neurological: Normal gait, Normal speech, Normal strength at 5/5 x4 extr, Normal tone, Normal affect Lymphatics: No axilla or inguinal lymphadenopathy - Studies Laboratory Data (last 24 hrs) 07/14/22 22:15: PT 14.9 H, INR 1.35 07/14/22 22:15: WBC 3.60 L, Hgb 12.5, Hct 38.4, Plt Count 179 07/14/22 22:15: Sodium 135 L, Potassium 4.0, BUN 15, Creatinine 1.11, Glucose 98, Magnesium 2.3, Total Bilirubin 1.3 H, AST 29, ALT 48, Alkaline Phosphatase 88, Lipase 80 <Payam Betancur - Last Filed: 07/15/22 18:08> - Studies Laboratory Data (last 24 hrs) 07/14/22 22:15: PT 14.9 H, INR 1.35 07/14/22 22:15: WBC 3.60 L, Hgb 12.5, Hct 38.4, Plt Count 179 07/14/22 22:15: Sodium 135 L, Potassium 4.0, BUN 15, Creatinine 1.11, Glucose 98, Magnesium 2.3, Total Bilirubin 1.3 H, AST 29, ALT 48, Alkaline Phosphatase 88, Lipase 80 <Duane Farley - Last Filed: 07/15/22 21:04> Assessment and Plan - Plan Assessment: Chest pain/dyspnea rule out ACS-suspect new onset CHFunknown EF Atrial fibrillation on chronic anticoagulation therapy Hypertension Plan: Chest pain/dyspnea rule out ACS-suspect new onset CHFunknown EF: Monitor on telemetry, trend troponins, echocardiogram ordered and cardiology consult in place. Continue with IV Lasix for diuresis for the time being. Continue other medications including amiodarone, Eliquis. Patient reports chest pain/dyspnea on exertion BNP is moderately elevated as well as mild pleural effusions on CT. Appreciate further input from cardiology. Atrial fibrillation on chronic anticoagulation therapy: Eliquis and amiodarone continued. Monitor on telemetry. Hypertension: Hold nebivolol at this time given sinus bradycardia. DVT PPX: Continue Eliquis Code status: Full Discharge Plan: Home Plan to discharge in: 24 Hours - Advance Directives Does patient have a Living Will: No Does patient have a Durable POA for Healthcare: No - Code Status/Comfort Care Code Status Assessed: Yes (Full code) Critical Care: No Time Spent Managing Pts Care (In Minutes): 70 <Payam Betancur - Last Filed: 07/15/22 18:08> Physician Review: Patient Assessed, Agree with Above Assessment and Plan <Duane Farley - Last Filed: 07/15/22 21:04>
[2022-07-15] MEDS ORDERED: ONDANSETRON 4 MG/2 ML VIAL IV PRN (04:32)
[2022-07-15 06:31] LABS: Potassium 3.6 mmol/L (3.5-5.1); Troponin High Sensitivity 12.9 pg/mL (<58.9)
--- NOTE | 2022-07-15 07:35 | EKG ---
Test Date: 2022-07-14 Test Time: 22:12:45 Traveling Accountant: KIMMIE MEASUREMENT RESULTS: Intervals: Rate: 58 OR: 158 QRSD: 104 QT: 488 QTc: 479 Chuckey: P: 74 OR: 158 QRS: -23 T: 114 INTERPRETIVE STATEMENTS: Sinus bradycardia Nonspecific ST and T wave abnormality Prolonged QT Abnormal ECG Compared to ECG 03/02/2022 04:38:33 ST (T wave) deviation now present Prolonged QT interval now present Sinus rhythm no longer present Atrial premature complex(es) no longer present Electronically Signed On 07-15-22 07:35:05 CDT by Rhys Scott
[2022-07-15] MEDS: APIXABAN 2.5 MG TABLET PO SCH ×2 (09:03→20:52)
[2022-07-15] MEDS: PARoxetine HCL 10 MG TAB PO SCH (09:03)
[2022-07-15] MEDS: AMIODARONE HCL 200 MG TAB PO SCH (09:03)
[2022-07-15] MEDS: FUROSEMIDE 20 MG/ 2ML VIAL IV SCH ×2 (09:04→16:14)
--- NOTE | 2022-07-15 11:10 | CON ---
Date of Consultation: 07/15/2022 Reason For Consultation: Shortness of breath, dyspnea on exertion, possible new onset congestive hea rt failure. History Of Present Illness: Ms. Castanon is 77. She is a patient of Dr. Navarrete and Dr. Maxi calhoun and had an ablation in the past that did not work. She came back to the hospital with AFib, was placed back on amiodarone. She comes in with shortness of breath, dyspnea on exertion, chest tightne ss. No nausea, vomiting, diaphoresis, PND, orthopnea. Has had some pedal edema. No palpitation. N o syncope. No fever or chills. Workup so far has been negative. Echocardiogram is pending. Allergies: SHE IS ALLERGIC TO PENICILLIN. Review of Systems: Negative. Social History: Negative. Family History: Noncontributory. Medications: Include amiodarone, Eliquis, iron, Bystolic, and Paxil. Physical Examination: Vital Signs: Stable, sinus rhythm. HEENT: Negative. Neck: Supple with no bruit. Chest: Clear. Cardiac: Revealed a regular rhythm and rate. No murmurs, gallops, or rubs. Abdomen: Benign. Extremities: Revealed trace edema. Diagnostic Data: Echocardiogram is pending, rest within normal limit. Impression And Plan: Possible new onset congestive heart failure secondary to amiodarone possibly. Echocardiogram is pending. I think she needs to discuss having another ablation by Dr. Daisy lewis ering she did not have any symptoms, off amiodarone and after she started her amiodarone, her symptom s came back. We will see what the echo shows. I think she needs to have an outpatient Lexiscan or m lindsay even a heart catheterization, but I will address that with Dr. Navarrete. Meanwhile, continue the Eliquis, continue Bystolic, continue Paxil and iron. We will see what the echo shows. Continue diu resis. The patient had diuresed 5 L overnight and she is feeling much better. We will continue to jennifer bailey. KORTNEY/DEIRDRE Voice ID: [id number] Report ID: [id number]
--- NOTE | 2022-07-15 13:58 | RAD REPORT ---
EXAM DESCRIPTION: CT - Chest For Pe Angio - 07/15/2022 12:34 am CLINICAL HISTORY: 77 years Female Dyspnea. TECHNIQUE: Following the administration of intravenous contrast, multiple high-resolution axial imag es of the chest were performed followed by sagittal and coronal reconstructed images. Coronal oblique as well as coronal and sagittal MIP images were also performed. The CT study is performed according to ALARA (as low as reasonably achievable) or ALARA/IMAGE GENTLY, with automatic adjustment of mA and /or kV according to patient size. Performed on: 07/15/2022 at 12:28 AM COMPARISON: Prior chest x-ray performed on 03/02/2022 and prior chest x-ray report from 06/18/2020. Th mary images were unavailable for review. FINDINGS: There is satisfactory visualization and contrast opacification of pulmonary arteries. No definite intra-arterial filling defects are identified to suggest acute or chronic pulmonary embolis m. The thoracic aorta is normal in caliber and contour without evidence of aneurysm or dissection. Th ere are mild atherosclerotic calcifications along the thoracic aorta. Lungs are well-expanded. There are small bilateral pleural effusions slightly larger on the right. Th ere is scattered mosaic attenuation of the lungs which is nonspecific and could be related to edema o r underlying infectious or inflammatory changes. There is no evidence of a pneumothorax. Central airw ays are patent. The heart is mildly enlarged. There is no pericardial effusion. There is no reflux of contrast into t he hepatic veins to suggest right heart strain.The RV/LV ratio is within normal limits. There is no evidence of pathologic hilar, mediastinal or axillary lymphadenopathy. There is a chronic moderate compression fracture of T8. There is also mild superior endplate compress ion fracture of T6 and T11 and mild compression deformities along the superior and inferior endplate of T4. These are all likely chronic in nature. As described previously, there is a chondroid lesion in the proximal right humeral metaphysis, likely benign The visualized upper abdominal structures are unremarkable. IMPRESSION: 1. No evidence of acute or chronic pulmonary embolism, aortic aneurysm or aortic disse ction. 2. Small bilateral pleural effusions slightly larger on the right. 3. Scattered mosaic attenuation of the lungs which is nonspecific and could be related to edema or underlying infectious or inflammatory changes. 4. Mild cardiomegaly. 5. Chronic appearing compression fractures of T4, T6, T8 and T11. Electronically signed by: Allison Salmon DO 07/15/2022 2:11 AM CDT Due to temporary technical issues with the PACS/Fluency reporting system, reports are being signed by the in house radiologists without review as a courtesy to insure prompt reporting. The interpreting radiologist is fully responsible for the content of the report.
[2022-07-15 23:12] VITALS: BP 119/58; TEMP 97.9
[2022-07-16 04:26] LABS: Potassium 3.5 mmol/L (3.5-5.1)
[2022-07-16 04:54] VITALS: O2SAT 96
[2022-07-16 06:24] VITALS: BMI 33.9
[2022-07-16] MEDS ORDERED: POTASSIUM CL SA 10 MEQ TAB PO ONE (07:11)
--- NOTE | 2022-07-16 07:17 | P.DS ---
Admission Date: 07/15/22 Discharge Date: 07/16/22 Primary Care Provider: Dr. Velazquez Disposition: ROUTINE DISCHARGE Discharge Condition: GOOD Reason for Admission: Chest pain, dyspnea on exertion Consultations: 1. Cardiology Hospital Course: DIAGNOSES: # Acute Diastolic Congestive Heart Failure with Preserved Ejection Fraction (LVEF 55-60 %) # Moderate Pulmonary Hypertension # Chronic Atrial Fibrillation on Apixaban # Hypertension # Chronic Moderate T4, T6, T8, T11 Compression Fractures # Right Proximal Humeral Metaphysis Chondroid Lesion (benign per Radiology) HOSPITAL COURSE: Ms. Dinorah Castanon is a pleasant 77 year old female with a past medical history significant for chronic atrial fibrillation who was admitted to the [facility] on 07/15/2022 for acute onset chest pain and shortness of breath. She was admitted to the Medicine service. Her EKG was without STEMI criteria. Her troponin trend was 12.8 -> 12.9 -> 12.4. Her chest x-ray revealed, "no acute abnormalities displayed." CT chest angiogram revealed, "1. No evidence of acute or chronic pulmonary embolism, aortic aneurysm or aortic dissection. 2. Small bilateral pleural effusions slightly larger on the right. 3. Scattered mosaic attenuation of the lungs which is nonspecific and could be related to edema or underlying infectious or inflammatory changes. 4. Mild cardiomegaly. 5. Chronic appearing compression fractures of T4, T6, T8 and T11." Transthoracic echocardiogram revealed a left ventricular ejection fraction of 55-60 %, moderate diastolic dysfunction, and moderate pulmonary hypertension. Cardiology was consulted and she was evaluated by Dr. Scott. She was treated with IV furosemide, with significant improvement in her symptoms. Over her hospital course, her chest pain and shortness of breath completely resolved. She has been cleared for discharge by Dr. Scott with furosemide [address] Scott has updated her santa's helper, Dr. Navarrete. Her nebivolol has been discontinued due to sinus bradycardia. On 07/16/2022, she was seen on morning rounds and deemed medically stable for discharge. She was discharged with instructions to schedule follow-up appointments with her PCP (Dr. Velazquez) in 3-5 days and with her santa's helper (Dr. Navarrete) on 07/22/2022. She was provided a prescription for furosemide. The patient and family members were given the opportunity to ask questions and reported no further questions. Furthermore, all questions were answered to the best of my ability. A copy of this discharge summary will be sent to the above providers to facilitate continuity of care. Today, I personally spent 20 minutes on her case, of which greater than 50% of the time was spent in patient education, counseling, and coordination of care as described above. Vital Signs/Physical Exam: Temp Pulse Resp BP Pulse Ox 97.9 F 53 18 119/58 L 93 07/15/22 20:00 07/15/22 20:00 07/15/22 20:00 07/15/22 20:00 07/15/22 20:00 General: Alert, In no apparent distress, Oriented x3 HEENT: Atraumatic, PERRLA, Mucous membr. moist/pink, EOMI, Sclerae nonicteric Neck: Supple, JVD not distended Respiratory: Clear to auscultation bilaterally, Normal air movement Cardiovascular: Normal pulses, Regular rate/rhythm, No gallops, No rubs, No murmurs, Edema (trace) Capillary refill: <2 Seconds Gastrointestinal: Normal bowel sounds, Soft and benign, Non-distended, No tenderness, No rebound, No guarding Musculoskeletal: No clubbing Integumentary: No rashes Neurological: Normal speech, Cranial nerves 3-12 intact, Normal affect Laboratory Data at Discharge: WBC 3.60 K/uL (4.3-10.9) L 07/14/22 22:15 Hgb 12.5 g/dL (12.0-15.0) 07/14/22 22:15 Hct 38.4 % (36.0-45.0) 07/14/22 22:15 Plt Count 179 K/uL (152-406) 07/14/22 22:15 PT 14.9 SECONDS (9.5-12.5) H 07/14/22 22:15 INR 1.35 07/14/22 22:15 Sodium 138 mmol/L (136-145) 07/16/22 03:41 Potassium 3.5 mmol/L (3.5-5.1) 07/16/22 03:41 BUN 18 mg/dL (7-18) 07/16/22 03:41 Creatinine 1.13 mg/dL (0.55-1.3) 07/16/22 03:41 Glucose 105 mg/dL (74-106) 07/16/22 03:41 Magnesium 2.3 mg/dL (1.8-2.4) 07/14/22 22:15 Total Bilirubin 1.3 mg/dL (0.2-1.0) H 07/14/22 22:15 AST 29 U/L (15-37) 07/14/22 22:15 ALT 48 U/L (12-78) 07/14/22 22:15 Alkaline Phosphatase 88 U/L (45-117) 07/14/22 22:15 Triglycerides 114 mg/dL (<150) 07/15/22 05:19 Cholesterol 154 mg/dL (<200) 07/15/22 05:19 HDL Cholesterol 40 mg/dL (40-60) 07/15/22 05:19 Cholesterol/HDL Ratio 3.85 07/15/22 05:19 Lipase 80 U/L (73-393) 07/14/22 22:15 Home Medications: RX: Amiodarone HCl [Cordarone*] 200 mg PO DAILY 07/15/22 RX: Apixaban [Eliquis *] 2.5 mg PO BID 07/15/22 RX: Cholecalciferol (Vitamin D3) [Vitamin D 1000 Iu Tab*] 1,000 unit PO DAILY 07/15/22 RX: Cyanocobalamin [Vitamin B-12*] 1,000 mcg PO DAILY 07/15/22 RX: Ferrous Sulfate [Iron] 325 mg PO BID 07/15/22 RX: PARoxetine HCL [Paxil*] 10 mg PO DAILY 07/15/22 Furosemide [Lasix] 40 mg PO DAILY #30 tab 07/16/22 New Medications: Furosemide [Lasix] 40 mg PO DAILY #30 tab Physician Discharge Instructions: 1. Please schedule a follow-up appointment with your PCP (Dr. Velazquez) in 3-5 days 2. Please attend your follow-up appointment with your Senior Mobile Solutions Architect (Dr. Navarrete) on 07/22/2022 - You have been started on furosemide (Lasix) for your heart failure flare-up - Please stop taking nebivolol (Bystolic) because your heart rate is too low Diet: AHA Activity: Ad nahomy Followup: Kimi Velazquez, [Primary Care Provider] - DABAGHI,SALIM F [UNKNOWN] - Time spent managing pt's care (in minutes): 20
[2022-07-16] MEDS: APIXABAN 2.5 MG TABLET PO SCH (08:16)
[2022-07-16] MEDS: PARoxetine HCL 10 MG TAB PO SCH (08:16)
[2022-07-16] MEDS: AMIODARONE HCL 200 MG TAB PO SCH (08:16)
--- NOTE | 2022-07-16 09:05 | ECHO ---
HEIGHT: 5 ft 5 in WEIGHT: 203 lb 12.8 oz DATE OF STUDY: 07/15/[address]: Payam Betancur NP 2-DIMENSIONAL: YES M.MODE: YES DOPPLER: YES COLOR FLOW: YES TDS: PORTABLE: YES DEFINITY: BUBBLE STUDY: DIAGNOSIS: CHEST PAIN/ NEW CONGESTIVE HEART FAILURE CARDIAC HISTORY: CATHERIZATION: SURGERY: PROSTHETIC VALVE: PACEMAKER: MEASUREMENTS (cm) DIASTOLIC (NORMALS) SYSTOLIC (NORMALS) IVSd 0.9 (0.6-1.2) LA Diam 4.0 (1.9-4.0) LVEF 58% LVIDd 4.5 (3.5-5.7) LVIDs 3.1 (2.0-3.5) %FS 31% LVPWd 1.1 (0.6-1.2) Ao Diam 2.8 (2.0-3.7) 2 DIMENSIONAL ASSESSMENT: RIGHT ATRIUM: NORMAL LEFT ATRIUM: NORMAL RIGHT VENTRICLE: NORMAL LEFT VENTRICLE: NORMAL TRICUSPID VALVE: MILD TRICUSPID REGURGITATION MITRAL VALVE: MILD MITRAL REGURGITATION PULMONIC VALVE: NORMAL AORTIC VALVE: MILD AORTIC INSUFFICIENCY PERICARDIAL EFFUSION: NONE AORTIC ROOT: NORMAL LEFT VENTRICULAR WALL MOTION: NORMAL DOPPLER/COLOR FLOW: SEE BELOW COMMENTS: NORMAL LEFT VENTRICULAR EJECTION FRACTION 55-60%. NORMAL WALL MOTION. MODERATE DIASTOLIC DYSFUNCTION. MILD (TRICUSPID REGURGIATION, MITRAL REGURGITATION, AORTIC INSUFFICIENCY). MODERATE PULMONARY HYPERTENSION WITH RIGHT VENTRICULAR SYSTOLIC PRESSURE OF 55-60 mmHg. TECHNOLOGIST: MASHA POSADA
--- NOTE | 2022-07-18 16:07 | PN ---
Date of Progress Note: 07/16/2022 Ms. Castanon is 77. Has a history of atrial fibrillation, anemia, hypertension, history of ablati on by Dr. Villa. She came back with chest pain, dyspnea on exertion. I have sent a text message to Dr. Navarrete regarding her admission. He will see her soon in the office. Echocardiogram showed mil d aortic regurgitation with an ejection fraction of 50%. Ms. Castanon considers her amiodarone to be causing her symptoms. She has never had a heart catheterization. She has ruled out for an ND. I think it may be a good idea to discontinue her amiodarone and do another ablation. If she has more atrial fibrillation, do a Lexiscan as an outpatient or heart catheterization. She can go home. She will discuss the case further with Dr. Navarrete in the near future. KORTNEY/DEIRDRE Voice ID: [id number] Report ID: [id number]
== END 2022-07-16 08:37 | disposition home or self-care (01) ==
LOC: ER 19:23 → ERHOLD 07-15 01:27 → 4TH 07-15 04:31
PROVIDERS: ADMIT Internal Medicine; ATTEND Internal Medicine
DX: I50.31 Acute diastolic (congestive) heart failure (principal); I48.11 Longstanding persistent atrial fibrillation; I27.20 Pulmonary hypertension, unspecified; Z79.01 Long term (current) use of anticoagulants; I10 Essential (primary) hypertension; M48.54XG Collapsed vertebra, not elsewhere classified, thoracic region, subsequent encounter for fracture with delayed healing; M89.8X2 Other specified disorders of bone, upper arm; Z88.0 Allergy status to penicillin; Z20.822 Contact with and (suspected) exposure to COVID-19
CPT/HCPCS: 36415; 71045; 71275; 80048; 80061; 80076; 83690; 83735; 83880; 84484; 85025; 85610; 87811; 93005; 93306; 96374; 96375; 99285; C9113; G0378; J1940; Q9967